=== PATIENT | female | born 1955 | race Caucasian/White ===

== ENCOUNTER 2018-07-31 13:38 | Inpatient (IN) | payer BC, MEDICAID ==
[2018-07-31] MEDS ORDERED: predniSONE 20 MG TABLET PO STA (14:07)
[2018-07-31] MEDS ORDERED: IPRATROPIUM 0.2 MG/ML NEB INH STA (14:07)
[2018-07-31] MEDS ORDERED: ALBUTEROL NEB 2.5 MG/3 ML INH STA (14:07)
[2018-07-31] MEDS ORDERED: MAGNESIUM SULFATE 2 GRAM 2 GM/50 ML BAG IV ONE (14:08)
[2018-07-31] MEDS ORDERED: METOCLOPRAMIDE 10 MG/2 ML VIAL IVP STA (14:08)
[2018-07-31] MEDS ORDERED: ACETAMINOPHEN 500 MG TABLET PO STA (14:08)
--- NOTE | 2018-07-31 14:11 | ED Physician Documentation ---
PD HPI DYSPNEA - Stated complaint Stated Complaint: SOA/HEADACHE - Chief complaint Chief Complaint: Resp - Additional information Additional information: 62-year-old female who recently quit smoking 1 week ago presents the emergency department with increasing shortness of breath, URI symptoms and dyspnea on exertion over the past several days. The patient reports feeling generally weak and unwell. Symptoms are described as severe. No relieving factors. The patient also reports a generalized headache associated with the shortness of breath. The patient describes a headache as mild. The headache was a gradual onset Review of Systems Constitutional: reports: Chills, Fatigue Eyes: denies: Discharge Ears: denies: Ear pain Nose: reports: Rhinorrhea / runny nose, Congestion Throat: denies: Sore throat Cardiac: denies: Chest pain / pressure Respiratory: reports: Dyspnea, Cough, Wheezing GI: denies: Vomiting : denies: Dysuria Skin: denies: Rash Musculoskeletal: denies: Neck pain Neurologic: reports: Headache. denies: Generalized weakness PD PAST MEDICAL HISTORY - Past Medical History Endocrine/Autoimmune: None : None HEENT: None Derm: None - Past Surgical History Past Surgical History: Yes General: Cholecystectomy, Other - Present Medications Home Medications: Ambulatory Orders Medication Instructions Recorded Confirmed No Known Home Medications 05/23/15 07/31/18 - Allergies Allergies/Adverse Reactions: Allergies Allergy/AdvReac Type Severity Reaction Status Date / Time penicillin V Allergy Unknown Verified 07/31/18 16:14 pollen extracts Allergy Unknown Verified 07/31/18 16:14 codeine AdvReac Unknown Verified 07/31/18 16:14 - Social History Does the pt smoke?: Yes Smoking Status: Current some day smoker Does the pt drink ETOH?: Yes Does the pt have substance abuse?: Yes Results - Vitals Vitals: Vital Signs - 24 hr 07/31/18 07/31/18 07/31/18 13:44 14:23 15:53 Temperature 36.6 C Heart Rate 82 76 63 Respiratory 20 18 16 Rate Blood Pressure 152/84 H 99/55 L O2 Saturation 82 L 89 L 07/31/18 16:07 Temperature Heart Rate Respiratory Rate Blood Pressure O2 Saturation 92 Oxygen O2 Source Nasal cannula Oxygen Flow Rate 3 - EKG (time done) 13:59 Rate: Rate (enter#) Rhythm: NSR Intervals: Normal WI, QRS normal QRS: Normal Ischemia: Non specific changes - Labs Labs: Laboratory Tests 07/31/18 07/31/18 07/31/18 15:21 15:21 15:21 WBC 6.2 RBC 4.58 Hgb 14.2 Hct 41.9 MCV 91.4 MCH 30.9 MCHC 33.9 RDW 13.5 Plt Count 184 MPV 7.5 L Neut # (Auto) 3.4 Lymph # (Auto) 2.2 [place] # (Auto) 0.5 Eos # (Auto) 0.1 Baso # (Auto) 0.0 Absolute Nucleated RBC 0.00 Nucleated RBC % 0.0 Sodium 136 Potassium 3.4 L Chloride 94 L Carbon Dioxide 32 Anion Gap 10.0 BUN 20 Creatinine 0.7 Estimated GFR (MDRD) 85 L Glucose 111 H Calcium 9.2 Total Bilirubin 0.9 AST 30 ALT 31 Alkaline Phosphatase 41 L Troponin I < 0.04 Total Protein 7.2 Albumin 4.0 Globulin 3.2 Albumin/Globulin Ratio 1.3 Lipase 29 - Rads (name of study) CXR Radiology: Final report received, See rad report (IMPRESSION: COPD. No lobar consolidation. ) PD MEDICAL DECISION MAKING - ED course ED course: The patient has had improvement with a prolonged breathing treatment, but the patient still has a fair amount of wheezing and is requiring oxygen to maintain her oxygen saturations. The patient will require admission for further management of her acute COPD exacerbation. The findings and plan were discussed with the hospitalist Dr. Salamanca who agrees with the plan. The plan was discussed with the patient who understands and agrees to plan Departure - Departure Disposition: [facility] DC/Xfer Clinical Impression: COPD with acute exacerbation, Hypoxia Condition: Fair
--- NOTE | 2018-07-31 14:34 | XRAY Report ---
Reason: hypoxic Procedure Date: 07/31/2018 Accession Number: [id number] / [id number] Procedure: XR - Chest 2 View X-Ray CPT Code: 48703 FULL RESULT: EXAM: CHEST RADIOGRAPHY EXAM DATE: 07/31/2018 02:22 PM. CLINICAL HISTORY: Hypoxic. COMPARISON: Chest 2 view PA/lateral 05/23/2015 2:13 PM. TECHNIQUE: 2 views. FINDINGS: Lungs/Pleura: No focal opacities evident. No pleural effusion. No pneumothorax. Increased lung volumes and flattened diaphragms. Mediastinum: Heart and mediastinal contours are stable with subtle calcifications of the aortic arch. Other: None. IMPRESSION: COPD. No lobar consolidation. RADIA
[2018-07-31 15:27] LABS: BASOPHILS % (AUTO) 0.4 %; EOSINOPHILS # (AUTO) 0.1 10^3/uL (0.0-0.7); EOSINOPHILS % (AUTO) 0.8 %; HGB - HEMOGLOBIN 14.2 g/dL (12.0-16.0); LYMPHOCYTES # (AUTO) 2.2 10^3/uL (1.5-3.5); LYMPHOCYTES % (AUTO) 35.2 %; MEAN CORPUSCULAR HEMOGLOBIN 30.9 pg (27.0-31.0); MEAN CORPUSCULAR HGB CONC 33.9 g/dL (32.0-36.0); MEAN CORPUSCULAR VOLUME 91.4 fL (81.0-99.0); MEAN PLATELET VOLUME 7.5 fL (7.9-10.8); MONOCYTES # (AUTO) 0.5 10^3/uL (0.0-1.0); MONOCYTES % (AUTO) 8.7 %; NEUTROPHILS # (AUTO) 3.4 10^3/uL (1.5-6.6); NEUTROPHILS % (AUTO) 54.9 %; PLT - PLATELET COUNT 184 10^3/uL (130-450); RED BLOOD COUNT 4.58 10^6/uL (4.20-5.40); RED CELL DISTRIBUTION WIDTH 13.5 % (12.0-15.0); WHITE BLOOD COUNT 6.2 x10^3/uL (4.8-10.8)
[2018-07-31 15:42] LABS: ALBUMIN/GLOBULIN RATIO 1.3 (1.0-2.2); BILIRUBIN,TOTAL 0.9 mg/dL (0.2-1.0); CALCIUM 9.2 mg/dL (8.5-10.3); CREATININE 0.7 mg/dL (0.4-1.0); TOTAL PROTEIN 7.2 g/dL (6.7-8.2)
[2018-07-31] MEDS ORDERED: ONDANSETRON ODT 4 MG TABLET TL PRN ×2 (16:51→17:41)
[2018-07-31] MEDS ORDERED: TEMAZEPAM 15 MG CAPSULE PO PRN (16:51)
[2018-07-31] MEDS ORDERED: ONDANSETRON 4 MG/2 ML VIAL IVP PRN ×2 (16:51→17:41)
[2018-07-31] MEDS ORDERED: SODIUM CHLORIDE FLUSH 0.9% 10 ML SYRINGE IVP PRN (16:51)
[2018-07-31] MEDS ORDERED: HYDROcod/ACETAM 5/325 MG TABLET PO PRN (16:51)
[2018-07-31] MEDS ORDERED: ACETAMINOPHEN 325 MG TABLET PO PRN ×2 (16:51→17:41)
--- NOTE | 2018-07-31 16:58 | HISTORY & PHYSICAL EXAMINATION ---
Chief Complaint - Chief Complaint Chief Complaint: shortness of breath, dizziness History of Present Illness - Admitted From Admitted From:: ED - History Obtained From Records Reviewed: yes History obtained from: chart review, patient Exam Limitations: none - History of Present Illness HPI Comment/Other: Nuris Silver is an older appearing 62-year old female with a past medical history of homelessness, COPD, anxiety, sciatica, shingles, hypertension, caffeine use, and life long tobacco dependence, but quit 1 week ago. The patient lives in a transitional housing situation with an emotional support dog. She states that one week ago she decided to quit smoking cold turkey. Her first symptom was a "knot in the back of her neck" in which she knew she was about to get sick. Her next symptoms were extreme shortness of breath, then fatigue, dizziness, chest tightness, left arm numbness, anxiety, and one episode of syncope in which she was already sitting on the floor from extreme exhaustion. She did not seek medical care until today since she has a therapy dog and was worried about who would care for the dog if she were not home. A friend now has the dog and the patient was brought in by private car. Once in the ED the patient had a low oxygen on room air at 82%, which improved to 90% on 5L. Imaging showed COPD without evidence of pneumonia. On my exam she can speak in full sentences, but requires 5L per oxy mask. She was using her accessory muscles, and was warm and dry. She denies dizziness, nausea, vomiting, a productive cough, bleeding, bruising, or worsening shortness of breath since arriving in the ED. She was admitted to inpatient for this COPD exacerbation. History - Past Medical History Cardiovascular: reports: Hypertension, Coronary artery disease, Murmur Respiratory: reports: COPD, Emphysema, Shortness of breath Neuro: reports: Headaches, Peripheral neuropathy, Tremors Endocrine/Autoimmune: reports: None GI: reports: GERD : reports: Incontinence (stress), Frequency HEENT: reports: Chronic sinusitis Psych: reports: Depression, Anxiety, Post traumatic stress disorder Musculoskeletal: reports: Osteoarthritis, Chronic back pain Derm: reports: None MRSA Hx?: No - Past Surgical History General: reports: Cholecystectomy, Other - Family & Social History Family History: Mother: , Father: , Sister: Alive and Well Family History Comment/Other: The patient's mother in 2001 of natural caused and had no known medical history. Her father became parapelegic when the patient was only 4 years old and was a QUAD, 8 years later from complications related to his condition. She has 2 biological sisters that are quite a bit older, both astranged without any known medical conditions. Living arrangement: snf ("[facility]", transitional housing after homelessness.) Social History Notes: The patient worked on a [employer] for 11 years in [place]. [place] moved to the [place] in [place] to take care of her mother and to live with her boyfriend, both of which have . She was homeless starting in 2014 after loosing her job. In the past 6 months, she has been able to move to transitional housing with her therapy dog, Med. She has made some friends there. She denies alcohol use. She admits to occasional marijuana use. She states that she has smoked since age 15 and for some of those years was using up to 3 PPD, but for the past month has been able to cut down to 1/2 PPD. She quit smoking one week ago and denies illicit drug use. She wishes to be a FULL code. - Substance History Use: Uses substance without health or social issues: Tobacco, Cannabis Use Issues: Anxiety Disorder, Mood Disorder Abuse: Recurrent use of substance despite neg consequences: NONE, Cannabis Abuse Issues: Anxiety Disorder Dependence: Experiences withdrawal or developed tolerances: Tobacco, Cannabis Dependence Issues: Anxiety Disorder, Mood Disorder Tobacco Details: Cigarettes (From age [age], quit 1 week ago.) - POLST Patient has POLST: No POLST Status: Full Code Meds/Allgy - Home Medications Home Medications: Ambulatory Orders Medication Instructions Recorded Confirmed No Known Home Medications 05/23/15 07/31/18 - Allergies Allergies/Adverse Reactions: Allergies Allergy/AdvReac Type Severity Reaction Status Date / Time penicillin V Allergy Severe Hives Verified 07/31/18 16:34 pollen extracts Allergy Intermediate Stuffy/Runny Verified 07/31/18 16:34 nose codeine AdvReac Severe Hives Verified 07/31/18 18:26 Review of Systems - Constitutional Constitutional: reports: Fatigue, Poor appetite, Weight loss - Eyes Eyes: reports: Vision loss - Ears, Nose & Throat Ears, Nose & Throat: reports: Postnasal drainage, Sore throat, Hoarseness, Dental decay - Cardiovascular Cariovascular: reports: Lightheadedness, Syncope (x1, was already sitting on the floor. Believes this was about an hour), Exertional dyspnea, Decr. exercise tolerance, Orthopnea - Respiratory Respiratory: reports: Cough, Sputum production, Wheezing, Orthopnea, SOB at rest, SOB with exertion - Gastrointestinal Gastrointestinal: reports: Nausea, Reflux/heartburn - Genitourinary Genitourinary: reports: Frequency, Nocturia - Musculoskeletal Musculoskeletal: reports: Muscle weakness - Integumentary Integumentary: reports: Dryness - Neurological Neurological: reports: General weakness, Dizziness, Abnormal gait (inability to ambulate for more than a few steps), Other (anxiety) - Psychiatric Psychiatric: reports: Depression, Anxiety - All Other Systems All Other Systems: reports: Reviewed and negative Prior Level of Functionality: Lives independently in transitional housing, no use of cane or walker. No recent falls. Exam - Vital Signs Reviewed Vital Signs: Yes Vital Signs: Vital Signs x48h Temp Pulse Resp BP Pulse Ox 07/31/18 16:36 87 L 07/31/18 16:07 92 07/31/18 15:53 63 16 99/55 L 89 L 07/31/18 14:23 76 18 07/31/18 13:44 36.6 C 82 20 152/84 H 82 L - Physical Exam General Appearance: positive: Alert, Mild distress, Anxious Eyes Bilateral: positive: PERRL. negative: No scleral icterus (bilateral scleral icterus) ENT: positive: Pharyngeal erythema, Oral lesions (poor dentitian), Dry mucous me mbranes Neck: positive: No JVD, Lymphadenopathy (R), Lymphadenopathy (L) Respiratory: positive: Chest non-tender, Wheezes, Rhonchi Cardiovascular: positive: Regular rate & rhythm, No gallop, Systolic murmur, Decreased pulse(s) Peripheral Pulses: positive: 1+ Abdomen: positive: Non-tender, Nml bowel sounds Back: positive: Nml inspection Skin: positive: No rash, Warm, Dry, Other (bronze) Extremities: positive: Non-tender, Full ROM, No pedal edema Neurologic/Psychiatric: positive: Oriented x3, CN's nml (2-12), Motor nml, Sensation nml, Weakness, Slurred/abnml speech (speech impediment), Depressed mood/affect Reflexes: Bicep (R): 3+, Bicep (L): 3+ Sepsis Event Note (H) - Evaluation Current Stage of Sepsis: Ruled out Conclusion/Plan - Problem List (1) COPD with acute exacerbation Conclusion/Plan: The patient lives in a transitional housing situation with an emotional support dog. She states that one week ago she decided to quit smoking cold turkey. Her first symptom was a "knot in the back of her neck" in which she knew she was about to get sick. Her next symptoms were extreme shortness of breath, then fatigue, dizziness, chest tightness, left arm numbness, and one episode of syncope in which she was already sitting on the floor from extreme exhaustion. She did not seek medical care until today since she has a therapy dog and was worried about who would care for the dog if she were not home. A friend now has the dog and the patient was brought in by private car. Once in the ED the patient had a low oxygen on room air at 82%, which improved to 90% on 5L. Plan: IV steroids, IV antibiotics, respiratory care, nebulizers, ABGs if changes in mentation, and further imaging if no improvement. (2) Hypoxia Conclusion/Plan: The patient states that she does not wear oxygen at home, and is not prescribed inhalers. She states that she quit smoking 1 week ago. Upon arrival to the ED she was only 82% on room air. During my exam, she was on 3-5L with oxygen saturations in the low 90's. She did not exhibit a cough. Plan: continue oxygen therapy, respiratory care, treat this COPD exacerbation. (3) Anxiety disorder Conclusion/Plan: The patient has been seen out patient for this and was prescribed citalopram in August of 2017. At this appointment she became very frustrated and left the clinic when it was time to discuss dose adjustment. Since that time, she has not been prescribed anything else for her chronic anxiety. Today on exam, she talked a lot about her therapy dog that she uses for her emotional support. She is agreeable to staying for the next 2-3 days to treat her COPD. She is hopeful that after this episode, her breathing will be much improved because she has stopped smoking for good. Plan: Offer morphine for air hunger, temazepam for sleep tonight, and monitor for extreme anxiousness. Suggest counseling upon discharge. Qualifiers: Anxiety disorder type: unspecified anxiety disorder Qualified Code(s): F41.9 - Anxiety disorder, unspecified (4) Tobacco abuse Conclusion/Plan: The patient states that she began smoking at age 16 and quit one week ago. 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 She did this for 11 years and this is when her smoking habit really formed. She said her maximum was just under 2 PPD, and just lately she cut back to 1/2 pack. Her PCP tried to help her with Chantix, but she states this did not work. Plan: Treat this exacerbation, offer nicotine if needed. (5) Dental caries extending into pulp Conclusion/Plan: On exam the patient is found to have poor dentition and this does not appear to be a new problem. I suspect heavy smoking or illicit drug use. Plan: MUDDs urine test, Peridex rinse. (6) Hypertension Conclusion/Plan: After reviewing outside records she had early HTN, without treatment. On arrival to the ED she had a blood pressure of 152/84, but this was likely due to stress. Plan: continue to monitor, consider starting a medication. Qualifiers: Hypertension type: essential hypertension Qualified Code(s): I10 - Yan dye (primary) hypertension - Lab Results Lab results reviewed: Yes Fish Bones: 08/01/18 04:58 08/01/18 04:58 - Diagnostic Imaging Results Diagnostic Imaging Results: positive: Final report reviewed Diagnostic Imaging Results Comments: EXAM: CHEST RADIOGRAPHY EXAM DATE: 07/31/2018 02:22 PM. FINDINGS: Lungs/Pleura: No focal opacities evident. No pleural effusion. No pneumothorax. Increased lung volumes and flattened diaphragms.Mediastinum: Heart and mediastinal contours are stable with subtle calcifications of the aortic arch. IMPRESSION: COPD. No lobar consolidation. - EKG Results EKG Interpreted Independently: Yes EKG Comparison: No prior EKG EKG Findings: SR 70's with flat T waves. Core Measures - Anticipated LOS I expect patient to be DC'd or transferred within 96 hours.: Yes - DVT/VTE - Prophylaxis VTE/DVT Device ordered at admit?: Yes VTE/DVT Prophylaxis med ordered at admit?: Yes - Stroke - Rehab Assessment Rehab services assessment to be ordered?: Yes - AMI - Statin at Admit Aspirin Prescribed on Admit: Yes
[2018-07-31] MEDS ORDERED: SODIUM CHLORIDE FLUSH 0.9% 10 ML SYRINGE IVP SCH (17:00)
[2018-07-31] MEDS ORDERED: IPRATROPIUM/ALBUTEROL 3 ML NEB INH PRN (17:38)
[2018-07-31] MEDS ORDERED: guaiFENesin/CODEINE 5 ML UDC PO PRN (18:16)
[2018-07-31] MEDS: SODIUM CHLORIDE FLUSH 0.9% 10 ML SYRINGE IVP PRN ×2 (18:21→22:38)
[2018-07-31] MEDS: methylPREDNISolone SUCCINATE 125 MG/2 ML VIAL IVP SCH ×2 (18:21→22:38)
[2018-07-31] MEDS: NS W/20 MEQ KCL 1,000 ML IV SCH (18:21)
[2018-07-31] MEDS: levoFLOXacin 750 MG/150 ML 750 MG/150 ML BAG IV SCH (18:58)
[2018-07-31] MEDS: IPRATROPIUM/ALBUTEROL 3 ML NEB INH SCH (20:17)
[2018-07-31] MEDS: BUDESONIDE 0.5 MG/2 ML NEB INH SCH (20:18)
[2018-07-31] MEDS: CHLORHEXIDINE GLUCONATE 15 ML UDC PO SCH (20:49)
[2018-07-31] MEDS: guaiFENesin 600 MG TABLET PO SCH (20:50)
[2018-07-31] MEDS: FAMOTIDINE 20 MG TABLET PO SCH (20:50)
[2018-07-31] MEDS: OXYMETAZOLINE NASAL SPRAY NAS SCH (20:50)
[2018-07-31] MEDS ORDERED: FAMOTIDINE 20 MG TABLET PO SCH (21:00)
[2018-07-31 23:09] LABS: MUDS CUTOFF CONCENTRATIONS CUTOFF CONC BELOW:
[2018-07-31 23:13] LABS: BILIRUBIN,URINE NEGATIVE (NEGATIVE); GLUCOSE, URINE (UA) >=1000 mg/dL (NEGATIVE); KETONES,URINE (UA) NEGATIVE (NEGATIVE); LEUKOCYTE ESTERASE, URINE NEGATIVE (NEGATIVE); NITRITE,URINE NEGATIVE (NEGATIVE); OCCULT BLOOD,URINE NEGATIVE (NEGATIVE); PROTEIN,URINE NEGATIVE (NEGATIVE); UROBILINOGEN,URINE 0.2 (NORMAL) E.U./dL (NORMAL)
[2018-07-31 23:17] LABS: CLARITY,URINE HAZY (CLEAR)
[2018-07-31 23:35] LABS: RBC,URINE None Seen /HPF (0-5)
[2018-07-31 23:36] LABS: BACTERIA,URINE Rare /HPF (None Seen); SQUAMOUS EPITHELIAL CELL,UR MANY Squamous (<= Few)
[2018-07-31 23:49] LABS: AMPHETAMINE SCREEN,URINE NEGATIVE (NEGATIVE); BENZODIAZEPINES SCREEN, URINE NEGATIVE (NEGATIVE); COCAINE SCREEN URINE NEGATIVE (NEGATIVE); METHADONE SCREEN, URINE NEGATIVE (NEGATIVE); METHAMPHETAMINES SCREEN, URINE NEGATIVE (NEGATIVE); OPIATE SCREEN, URINE NEGATIVE (NEGATIVE); OXYCODONE SCREEN, URINE NEGATIVE (NEGATIVE); PROPOXYPHENE SCREEN, URINE NEGATIVE (NEGATIVE); TRICYCLIC ANTIDEPRESSANT,URINE NEGATIVE (NEGATIVE)
[2018-07-31] MEDS: TEMAZEPAM 15 MG CAPSULE PO PRN (23:58)
[2018-08-01] MEDS: SODIUM CHLORIDE FLUSH 0.9% 10 ML SYRINGE IVP SCH ×4 (02:32→23:34)
[2018-08-01] MEDS: NS W/20 MEQ KCL 1,000 ML IV SCH (04:08)
[2018-08-01 05:20] LABS: BASOPHILS % (AUTO) 0.3 %; HGB - HEMOGLOBIN 12.9 g/dL (12.0-16.0); LYMPHOCYTES # (AUTO) 0.6 10^3/uL (1.5-3.5); LYMPHOCYTES % (AUTO) 12.5 %; MEAN CORPUSCULAR HEMOGLOBIN 30.7 pg (27.0-31.0); MEAN CORPUSCULAR HGB CONC 32.7 g/dL (32.0-36.0); MEAN CORPUSCULAR VOLUME 93.8 fL (81.0-99.0); MEAN PLATELET VOLUME 7.8 fL (7.9-10.8); MONOCYTES # (AUTO) 0.1 10^3/uL (0.0-1.0); MONOCYTES % (AUTO) 1.3 %; NEUTROPHILS # (AUTO) 4.2 10^3/uL (1.5-6.6); NEUTROPHILS % (AUTO) 85.9 %; PLT - PLATELET COUNT 168 10^3/uL (130-450); RED BLOOD COUNT 4.21 10^6/uL (4.20-5.40); RED CELL DISTRIBUTION WIDTH 13.5 % (12.0-15.0); WHITE BLOOD COUNT 4.9 x10^3/uL (4.8-10.8)
[2018-08-01 05:26] LABS: ALBUMIN 3.5 g/dL (3.2-5.5); ALBUMIN/GLOBULIN RATIO 1.1 (1.0-2.2); BILIRUBIN,TOTAL 0.7 mg/dL (0.2-1.0); CALCIUM 8.6 mg/dL (8.5-10.3); CREATININE 0.6 mg/dL (0.4-1.0); MAGNESIUM 2.2 mg/dL (1.7-2.8); PHOSPHORUS 3.6 mg/dL (2.5-4.6); TOTAL PROTEIN 6.7 g/dL (6.7-8.2)
[2018-08-01] MEDS: methylPREDNISolone SUCCINATE 125 MG/2 ML VIAL IVP SCH ×3 (06:19→21:07)
[2018-08-01] MEDS: IPRATROPIUM/ALBUTEROL 3 ML NEB INH SCH ×4 (07:21→19:45)
[2018-08-01] MEDS: BUDESONIDE 0.5 MG/2 ML NEB INH SCH ×2 (07:21→19:45)
[2018-08-01] MEDS: FAMOTIDINE 20 MG TABLET PO SCH ×2 (08:01→21:07)
[2018-08-01] MEDS: guaiFENesin 600 MG TABLET PO SCH ×2 (08:01→21:07)
[2018-08-01] MEDS: CHLORHEXIDINE GLUCONATE 15 ML UDC PO SCH ×2 (08:01→21:07)
[2018-08-01] MEDS: OXYMETAZOLINE NASAL SPRAY NAS SCH ×2 (08:02→21:08)
[2018-08-01] MEDS: POLYETHYLENE GLYCOL 3350 17 GM PACKET PO SCH (08:03)
[2018-08-01] MEDS: FLUTICASONE NASAL SPRAY NAS SCH (08:15)
[2018-08-01] MEDS: ENOXAPARIN 40 MG/0.4 ML SYRINGE SUBQ SCH (08:17)
--- NOTE | 2018-08-01 08:56 | PROVIDER PROGRESS NOTE ---
Subjective - Prog Note Date Prog Note Date: 08/01/18 Prog Note Time: 08:56 - Subjective Pt reports feeling: Improved Subjective: Nuris admits to much improvement since coming to the ED yesterday, but continues to have high oxygen needs of 6-8L oxygen per oxymask or nasal cannula. She notes that her appetite is improved today, but continues to be a light eater given her respiratory distress. She admits to a frontal headache, which she is thankful for the new nasal sprays. She denies confusion, insomnia, nausea, vomiting, new chest pain, anxiety, a rash, bleeding, a productive cough or dizziness. She was explained in detail her plan of care and given an information card to explain her treatment details. Current Medications - Current Medications Current Medications: Active Medications: Acetaminophen (Tylenol) 650 mg PO Q4HR PRN Hydrocodone Bitart/Acetaminophen (Regan 5/325) 1 tab PO Q4HR PRN Albuterol/Ipratropium (Duoneb) 3 ml INH Q4HR PRN Albuterol/Ipratropium (Duoneb) 3 ml INH RTQID DIAMANTE Budesonide (Pulmicort) 0.5 mg INH RTBID DIAMANTE Chlorhexidine Gluconate (Peridex) 15 ml PO BID DIAMANTE Enoxaparin Sodium (Lovenox) 40 mg SUBQ DAILY DIAMANTE Famotidine (Pepcid) 20 mg PO BID DIAMANTE Fluticasone Propionate (Flonase) 2 sprays CASANDRA DAILY DIAMANTE Guaifenesin (Mucinex) 600 mg PO BID DIAMANTE Potassium Chloride/Sodium Chloride (Normal Saline 0.9% W/20 Meq Kcl) 1,000 mls @ 50 mls/hr IV .Q8H DIAMANTE Levofloxacin (Levaquin 750 Mg/150 Ml) 750 mg in 150 mls @ 100 mls/hr IV Q24H DIAMANTE Methylprednisolone Sodium Succinate (Solu-Medrol (125mg Vial)) 60 mg IVP TID DIAMANTE Ondansetron HCl (Zofran Inj) 4 mg IVP Q6HR PRN Ondansetron HCl (Zofran Odt) 4 mg TL Q6HR PRN Oxymetazoline HCl (Afrin) 2 sprays CASANDRA BID DIAMANTE Polyethylene Glycol (Miralax) 17 gm PO DAILY DIAMANTE Temazepam (Restoril) 15 mg PO QPM PRN No Known Home Medications 05/23/15 Objective - Vital Signs/Intake & Output Reviewed Vital Signs: Yes Vital Signs: Vital Signs x48h Temp Pulse Pulse Resp BP Pulse Ox 08/01/18 08:00 36.3 C L 52 L 18 109/52 L 98 08/01/18 07:21 54 L 16 08/01/18 04:07 36.5 C 58 L 18 109/70 92 Intake & Output: Intake & Output 07/29/18 07/30/18 07/31/18 08/01/18 23:59 23:59 23:59 23:59 Intake Total 477.083 805.834 Output Total 250 Balance 227.083 805.834 - Objective General Appearance: positive: No acute distress, Alert, Mild distress Eyes Bilateral: positive: PERRL ENT: positive: Pharynx nml, Oral lesions (related to poor dentitian), Dry mucous membranes Neck: positive: Thyroid nml, No JVD, Lymphadenopathy (R), Lymphadenopathy (L) Respiratory: positive: Chest non-tender, Wheezes, Rhonchi Cardiovascular: positive: Regular rate & rhythm, No gallop, Tachycardia, Systolic murmur Peripheral Pulses: 1+ Radial (R), 1+ Radial (L) Abdomen: positive: Non-tender, Nml bowel sounds, Other (rounded, soft) Back: positive: Nml inspection Skin: positive: No rash, Warm, Dry, Other (bronze) Extremities: positive: Non-tender, Full ROM, Nml appearance, No pedal edema Neurologic/Psychiatric: positive: Oriented x3, CN's nml (2-12), Motor nml, Sensation nml, Mood/affect nml, Slurred/abnml speech (baseline speech impedement) Reflexes: Bicep (R): 3+, Bicep (L): 3+ - Lab Results Fish Bones: 08/01/18 04:58 08/01/18 04:58 Other Labs: Lab Results x24hrs 08/01/18 08/01/18 08/01/18 Range/Units 04:58 04:58 04:58 WBC 4.9 (4.8-10.8) x10^3/uL RBC 4.21 (4.20-5.40) 10^6/uL Hgb 12.9 (12.0-16.0) g/dL Hct 39.5 (37.0-47.0) % MCV 93.8 (81.0-99.0) fL MCH 30.7 (27.0-31.0) pg MCHC 32.7 (32.0-36.0) g/dL RDW 13.5 (12.0-15.0) % Plt Count 168 (130-450) 10^3/uL MPV 7.8 L (7.9-10.8) fL Neut # (Auto) 4.2 (1.5-6.6) 10^3/uL Lymph # (Auto) 0.6 L (1.5-3.5) 10^3/uL [place] # (Auto) 0.1 (0.0-1.0) 10^3/uL Eos # (Auto) 0.0 (0.0-0.7) 10^3/uL Baso # (Auto) 0.0 (0.0-0.1) 10^3/uL Absolute Nucleated RBC 0.00 x10^3/uL Nucleated RBC % 0.0 /100WBC Sodium 135 (135-145) mmol/L Potassium 4.2 (3.5-5.0) mmol/L Chloride 97 L (101-111) mmol/L Carbon Dioxide 29 (21-32) mmol/L Anion Gap 9.0 (6-13) BUN 17 (6-20) mg/dL Creatinine 0.6 (0.4-1.0) mg/dL Estimated GFR (MDRD) 101 (>89) Glucose 157 H (70-100) mg/dL Lactic Acid 1.3 (0.5-2.2) mmol/L Calcium 8.6 (8.5-10.3) mg/dL Phosphorus 3.6 (2.5-4.6) mg/dL Magnesium 2.2 (1.7-2.8) mg/dL Total Bilirubin 0.7 (0.2-1.0) mg/dL AST 28 (10-42) IU/L ALT 33 (10-60) IU/L Alkaline Phosphatase 40 L (42-121) IU/L Troponin I (<0.49) ng/mL Total Protein 6.7 (6.7-8.2) g/dL Albumin 3.5 (3.2-5.5) g/dL Globulin 3.2 (2.1-4.2) g/dL Albumin/Globulin Ratio 1.1 (1.0-2.2) Lipase (22-51) U/L Urine Color Urine Clarity (CLEAR) Urine pH (5.0-7.5) PH Ur Specific [place] (1.002-1.030) Urine Protein (NEGATIVE) mg/dL Urine Glucose (UA) (NEGATIVE) mg/dL Urine Ketones (NEGATIVE) mg/dL Urine Occult Blood (NEGATIVE) Urine Nitrite (NEGATIVE) Urine Bilirubin (NEGATIVE) Urine Urobilinogen (NORMAL) E.U./dL Ur Leukocyte Esterase (NEGATIVE) Urine RBC (0-5) /HPF Urine WBC (0-5) /HPF Ur Squamous Epith Cells (<= Few) Urine Bacteria (None Seen) /HPF Urine Culture Comments Urine Opiates Screen (NEGATIVE) Ur Oxycodone Screen (NEGATIVE) Urine Methadone Screen (NEGATIVE) Ur Propoxyphene Screen (NEGATIVE) Ur Barbiturates Screen (NEGATIVE) Ur Tricyclics Screen (NEGATIVE) Ur Phencyclidine Scrn (NEGATIVE) Ur Amphetamine Screen (NEGATIVE) U Methamphetamines Scrn (NEGATIVE) U Benzodiazepines Scrn (NEGATIVE) Urine Cocaine Screen (NEGATIVE) U Cannabinoids Screen (NEGATIVE) 07/31/18 07/31/18 07/31/18 Range/Units 22:40 15:21 15:21 WBC (4.8-10.8) x10^3/uL RBC (4.20-5.40) 10^6/uL Hgb (12.0-16.0) g/dL Hct (37.0-47.0) % MCV (81.0-99.0) fL MCH (27.0-31.0) pg MCHC (32.0-36.0) g/dL RDW (12.0-15.0) % Plt Count (130-450) 10^3/uL MPV (7.9-10.8) fL Neut # (Auto) (1.5-6.6) 10^3/uL Lymph # (Auto) (1.5-3.5) 10^3/uL [place] # (Auto) (0.0-1.0) 10^3/uL Eos # (Auto) (0.0-0.7) 10^3/uL Baso # (Auto) (0.0-0.1) 10^3/uL Absolute Nucleated RBC x10^3/uL Nucleated RBC % /100WBC Sodium 136 (135-145) mmol/L Potassium 3.4 L (3.5-5.0) mmol/L Chloride 94 L (101-111) mmol/L Carbon Dioxide 32 (21-32) mmol/L Anion Gap 10.0 (6-13) BUN 20 (6-20) mg/dL Creatinine 0.7 (0.4-1.0) mg/dL Estimated GFR (MDRD) 85 L (>89) Glucose 111 H (70-100) mg/dL Lactic Acid (0.5-2.2) mmol/L Calcium 9.2 (8.5-10.3) mg/dL Phosphorus (2.5-4.6) mg/dL Magnesium (1.7-2.8) mg/dL Total Bilirubin 0.9 (0.2-1.0) mg/dL AST 30 (10-42) IU/L ALT 31 (10-60) IU/L Alkaline Phosphatase 41 L (42-121) IU/L Troponin I < 0.04 (<0.49) ng/mL Total Protein 7.2 (6.7-8.2) g/dL Albumin 4.0 (3.2-5.5) g/dL Globulin 3.2 (2.1-4.2) g/dL Albumin/Globulin Ratio 1.3 (1.0-2.2) Lipase 29 (22-51) U/L Urine Color DARK YELLOW Urine Clarity HAZY (CLEAR) Urine pH 5.0 (5.0-7.5) PH Ur Specific [place] >=1.030 H (1.002-1.030) Urine Protein NEGATIVE (NEGATIVE) mg/dL Urine Glucose (UA) >=1000 H (NEGATIVE) mg/dL Urine Ketones NEGATIVE (NEGATIVE) mg/dL Urine Occult Blood NEGATIVE (NEGATIVE) Urine Nitrite NEGATIVE (NEGATIVE) Urine Bilirubin NEGATIVE (NEGATIVE) Urine Urobilinogen 0.2 (NORMAL) (NORMAL) E.U./dL Ur Leukocyte Esterase NEGATIVE (NEGATIVE) Urine RBC None Seen (0-5) /HPF Urine WBC 0-3 (0-5) /HPF Ur Squamous Epith Cells MANY Squamous H (<= Few) Urine Bacteria Rare (None Seen) /HPF Urine Culture Comments NOT INDICATED Urine Opiates Screen NEGATIVE (NEGATIVE) Ur Oxycodone Screen NEGATIVE (NEGATIVE) Urine Methadone Screen NEGATIVE (NEGATIVE) Ur Propoxyphene Screen NEGATIVE (NEGATIVE) Ur Barbiturates Screen NEGATIVE (NEGATIVE) Ur Tricyclics Screen NEGATIVE (NEGATIVE) Ur Phencyclidine Scrn NEGATIVE (NEGATIVE) Ur Amphetamine Screen NEGATIVE (NEGATIVE) U Methamphetamines Scrn NEGATIVE (NEGATIVE) U Benzodiazepines Scrn NEGATIVE (NEGATIVE) Urine Cocaine Screen NEGATIVE (NEGATIVE) U Cannabinoids Screen POSITIVE H (NEGATIVE) 07/31/18 Range/Units 15:21 WBC 6.2 (4.8-10.8) x10^3/uL RBC 4.58 (4.20-5.40) 10^6/uL Hgb 14.2 (12.0-16.0) g/dL Hct 41.9 (37.0-47.0) % MCV 91.4 (81.0-99.0) fL MCH 30.9 (27.0-31.0) pg MCHC 33.9 (32.0-36.0) g/dL RDW 13.5 (12.0-15.0) % Plt Count 184 (130-450) 10^3/uL MPV 7.5 L (7.9-10.8) fL Neut # (Auto) 3.4 (1.5-6.6) 10^3/uL Lymph # (Auto) 2.2 (1.5-3.5) 10^3/uL [place] # (Auto) 0.5 (0.0-1.0) 10^3/uL Eos # (Auto) 0.1 (0.0-0.7) 10^3/uL Baso # (Auto) 0.0 (0.0-0.1) 10^3/uL Absolute Nucleated RBC 0.00 x10^3/uL Nucleated RBC % 0.0 /100WBC Sodium (135-145) mmol/L Potassium (3.5-5.0) mmol/L Chloride (101-111) mmol/L Carbon Dioxide (21-32) mmol/L Anion Gap (6-13) BUN (6-20) mg/dL Creatinine (0.4-1.0) mg/dL Estimated GFR (MDRD) (>89) Glucose (70-100) mg/dL Lactic Acid (0.5-2.2) mmol/L Calcium (8.5-10.3) mg/dL Phosphorus (2.5-4.6) mg/dL Magnesium (1.7-2.8) mg/dL Total Bilirubin (0.2-1.0) mg/dL AST (10-42) IU/L ALT (10-60) IU/L Alkaline Phosphatase (42-121) IU/L Troponin I (<0.49) ng/mL Total Protein (6.7-8.2) g/dL Albumin (3.2-5.5) g/dL Globulin (2.1-4.2) g/dL Albumin/Globulin Ratio (1.0-2.2) Lipase (22-51) U/L Urine Color Urine Clarity (CLEAR) Urine pH (5.0-7.5) PH Ur Specific [place] (1.002-1.030) Urine Protein (NEGATIVE) mg/dL Urine Glucose (UA) (NEGATIVE) mg/dL Urine Ketones (NEGATIVE) mg/dL Urine Occult Blood (NEGATIVE) Urine Nitrite (NEGATIVE) Urine Bilirubin (NEGATIVE) Urine Urobilinogen (NORMAL) E.U./dL Ur Leukocyte Esterase (NEGATIVE) Urine RBC (0-5) /HPF Urine WBC (0-5) /HPF Ur Squamous Epith Cells (<= Few) Urine Bacteria (None Seen) /HPF Urine Culture Comments Urine Opiates Screen (NEGATIVE) Ur Oxycodone Screen (NEGATIVE) Urine Methadone Screen (NEGATIVE) Ur Propoxyphene Screen (NEGATIVE) Ur Barbiturates Screen (NEGATIVE) Ur Tricyclics Screen (NEGATIVE) Ur Phencyclidine Scrn (NEGATIVE) Ur Amphetamine Screen (NEGATIVE) U Methamphetamines Scrn (NEGATIVE) U Benzodiazepines Scrn (NEGATIVE) Urine Cocaine Screen (NEGATIVE) U Cannabinoids Screen (NEGATIVE) ABX Reporting Has patient been on IV antibiotics over the past 48 hours?: Yes Sepsis Event Note (H) - Evaluation Current Stage of Sepsis: Ruled out Assessment/Plan - Problem List (1) COPD with acute exacerbation Impression: The patient lives in a transitional housing situation with an emotional support dog. She states that one week ago she decided to quit smoking cold turkey. Her first symptom was a "knot in the back of her neck" in which she knew she was about to get sick. Her next symptoms were extreme shortness of breath, then fatigue, dizziness, chest tightness, left arm numbness, and one episode of s yncope in which she was already sitting on the floor from extreme exhaustion. She did not seek medical care until today since she has a therapy dog and was worried about who would care for the dog if she were not home. A friend now has the dog and the patient was brought in by private car. Once in the ED the patient had a low oxygen on room air at 82%, which improved to 90% on 5L. Today the patient admits to great improvement in her overall well being. She remains very diminished in her bilateral low lobes, with expiratory wheezing, and scattered crackles on exam. She appears less breathless, but not able to wean at lunch time after her nebulizer treatment. She remains on 6-L per nasal cannula and/or oxymask. Plan: Continue IV steroids, IV antibiotics, respiratory care, nebulizers, ABGs if changes in mentation, and further imaging if no improvement. (2) Sinusitis, acute frontal Impression: The patient complains of a headache located in her frontal region of her head during my review of systems. She states that it is not affecting her breathing or vision. Her tympanic membranes have a moderate amount of cerumen, and in her right ear fluid is appreciated behind the membrane which appears yellow. Plan: Continue Afrin x3 days, daily Flonase and debrox gtts x1 for her cerumen overload. Qualifiers: Recurrence: not specified as recurrent Qualified Code(s): J01.10 - Acute frontal sinusitis, unspecified (3) Hypoxia Impression: The patient states that she does not wear oxygen at home, and is not prescribed inhalers. She states that she quit smoking 1 week ago. Upon arrival to the ED she was only 82% on room air and remains on oxygen of 6-8L using nasal cannula for 6L and oxymask for greater than 6L. She has been having more of a cough today especially after her nebulizer treatments. Plan: continue oxygen therapy, respiratory care, treat COPD exacerbation. (4) Anxiety disorder Impression: The patient has been seen out patient for this and was prescribed citalopram in August of 2017. At that appointment she became very frustrated and left the clinic when it was time to discuss dose adjustment. Since that time, she has not been prescribed anything else for her chronic anxiety. She states that her therapy dog that she uses for her emotional support is being looked after by a reliable friend. She is agreeable to staying for the next 2-3 days to treat her COPD. She is hopeful that after this episode, her breathing will be much improved because she has stopped smoking for good. Today, she notes that she has not had any anxiety. Plan: Offer morphine for air hunger, increase O2 for a cough, temazepam for sleep tonight, and monitor for extreme anxiousness. Suggest counseling upon discharge. Qualifiers: Anxiety disorder type: unspecified anxiety disorder Qualified Code(s): F41.9 - Anxiety disorder, unspecified (5) Tobacco abuse Impression: The patient states that she began smoking at age 15 and quit one week ago. She said her maximum was just under 2-3 PPD, and just lately she cut back to 1/2 pack. Her PCP tried to help her with Chantix, but she states this did not work. She has refused a nicotine patch, and again today states that she is done smoking forever. She denies cravings. Plan: Treat this exacerbation, offer nicotine if needed. (6) Dental caries extending into pulp Impression: On exam the patient is found to have poor dentition and this does not appear to be a new problem. Her MUDDs test was + for marijuana and no other illicit drugs. She states that in the 1950's when he mother was with her she was prescribed YINA (diethylstilbestrol; a non-steroidal estrogen first synthesized in 1938) for nausea while , which is what she was told gave her the yellow teeth. She states that all of her child aguilar, her teeth were yellow and she always had cavities. She states that later in life, she lacked dental care as the jobs she had did not offer dental coverage. She states that this month, she had planned to go get the rest of her teeth removed and get fitted for new dentures/implants. She believes that since she has stopped smoking, this will be encouraging that they will not become stained. On exam today she denies soreness in her mouth. She was cautioned that between the new nebulizers and the antibiotics, she may develop thrush or a vaginal yeast infection. Plan: Peridex rinse, regular oral care.
[2018-08-01] MEDS ORDERED: ENOXAPARIN 40 MG/0.4 ML SYRINGE SUBQ SCH (09:00)
[2018-08-01] MEDS ORDERED: POLYETHYLENE GLYCOL 3350 17 GM PACKET PO SCH (09:00)
[2018-08-01 09:27] LABS: HB2 TOTAL 13.5 g/dL; HEMOGLOBIN A1C 0.47 g/dL; HEMOGLOBIN A1C % 5.3 % (4.6-6.2)
[2018-08-01] MEDS ORDERED: NS W/20 MEQ KCL 1,000 ML IV SCH (12:19)
[2018-08-01] MEDS: HYDROcod/ACETAM 5/325 MG TABLET PO PRN ×2 (16:30→23:40)
[2018-08-01] MEDS ORDERED: BENZONATATE 100 MG CAPSULE PO PRN (18:52)
[2018-08-01] MEDS: levoFLOXacin 750 MG/150 ML 750 MG/150 ML BAG IV SCH (19:42)
[2018-08-01] MEDS: TEMAZEPAM 15 MG CAPSULE PO PRN (21:07)
[2018-08-01] MEDS: SODIUM CHLORIDE FLUSH 0.9% 10 ML SYRINGE IVP PRN (21:08)
[2018-08-02 05:09] LABS: BASOPHILS % (AUTO) 0.1 %; HGB - HEMOGLOBIN 12.7 g/dL (12.0-16.0); LYMPHOCYTES # (AUTO) 0.7 10^3/uL (1.5-3.5); LYMPHOCYTES % (AUTO) 7.9 %; MEAN CORPUSCULAR HEMOGLOBIN 31.2 pg (27.0-31.0); MEAN CORPUSCULAR HGB CONC 32.8 g/dL (32.0-36.0); MEAN CORPUSCULAR VOLUME 95.3 fL (81.0-99.0); MEAN PLATELET VOLUME 7.9 fL (7.9-10.8); MONOCYTES # (AUTO) 0.3 10^3/uL (0.0-1.0); MONOCYTES % (AUTO) 3.1 %; NEUTROPHILS # (AUTO) 8.3 10^3/uL (1.5-6.6); NEUTROPHILS % (AUTO) 88.9 %; PLT - PLATELET COUNT 177 10^3/uL (130-450); RED BLOOD COUNT 4.06 10^6/uL (4.20-5.40); RED CELL DISTRIBUTION WIDTH 13.9 % (12.0-15.0); WHITE BLOOD COUNT 9.3 x10^3/uL (4.8-10.8)
[2018-08-02 05:15] LABS: ALBUMIN 3.6 g/dL (3.2-5.5); ALBUMIN/GLOBULIN RATIO 1.2 (1.0-2.2); BILIRUBIN,TOTAL 0.5 mg/dL (0.2-1.0); CALCIUM 8.7 mg/dL (8.5-10.3); CREATININE 0.6 mg/dL (0.4-1.0); MAGNESIUM 2.1 mg/dL (1.7-2.8); TOTAL PROTEIN 6.6 g/dL (6.7-8.2)
[2018-08-02] MEDS: methylPREDNISolone SUCCINATE 125 MG/2 ML VIAL IVP SCH ×3 (05:47→22:07)
[2018-08-02] MEDS: IPRATROPIUM/ALBUTEROL 3 ML NEB INH SCH ×4 (07:39→19:59)
[2018-08-02] MEDS: BUDESONIDE 0.5 MG/2 ML NEB INH SCH ×2 (07:39→19:59)
[2018-08-02] MEDS ORDERED: CARBAMIDE PEROXIDE 6.5% OTIC DROPS EACHEAR ONE (08:09)
[2018-08-02] MEDS: FLUTICASONE NASAL SPRAY NAS SCH (08:09)
[2018-08-02] MEDS: OXYMETAZOLINE NASAL SPRAY NAS SCH ×2 (08:09→20:46)
[2018-08-02] MEDS: guaiFENesin 600 MG TABLET PO SCH (08:12)
[2018-08-02] MEDS: ENOXAPARIN 40 MG/0.4 ML SYRINGE SUBQ SCH (08:12)
[2018-08-02] MEDS: FAMOTIDINE 20 MG TABLET PO SCH ×2 (08:12→20:41)
[2018-08-02] MEDS: CHLORHEXIDINE GLUCONATE 15 ML UDC PO SCH ×2 (08:13→20:41)
[2018-08-02] MEDS: POLYETHYLENE GLYCOL 3350 17 GM PACKET PO SCH (08:13)
--- NOTE | 2018-08-02 08:18 | PROVIDER PROGRESS NOTE ---
Subjective - Prog Note Date Prog Note Date: 08/02/18 Prog Note Time: 08:09 - Subjective Pt reports feeling: Improved Subjective: Nuris states she is having a little trouble with sleeping, but this is acceptable to her with the fact that she feels so much better. She denies chest pain, nausea, vomiting, diarrhea, a rash, bleeding, increased shortness of breath or a new productive cough. She complains that she still feels fatigued, but this may be due to her prolonged illness prior to coming to the ED. *I have provided teaching handouts on COPD and chronic treatments. I have pre- sent Advair, Spiriva, Pro-air and Singular to her pharmacy with anticipation of going home in the next 1-2 days. Current Medications - Current Medications Current Medications: Active Medications: Acetaminophen (Tylenol) 650 mg PO Q4HR PRN Hydrocodone Bitart/Acetaminophen ([place] 5/325) 1 tab PO Q4HR PRN Albuterol/Ipratropium (Duoneb) 3 ml INH Q4HR PRN Albuterol/Ipratropium (Duoneb) 3 ml INH RTQID DIAMANTE Benzonatate (Tessalon) 100 mg PO TID PRN Budesonide (Pulmicort) 0.5 mg INH RTBID DIAMANTE Carbamide Perox/Anhydrous Glycerin (Debrox Otic Drops) 10 drops EACHEAR ONCE ON E Chlorhexidine Gluconate (Peridex) 15 ml PO BID DIAMANTE Enoxaparin Sodium (Lovenox) 40 mg SUBQ DAILY DIAMANTE Famotidine (Pepcid) 20 mg PO BID DIAMANTE Fluticasone Propionate (Flonase) 1 sprays CASANDRA DAILY DIAMANTE Guaifenesin (Mucinex) 600 mg PO BID DIAMANTE Levofloxacin (Levaquin 750 Mg/150 Ml) 750 mg in 150 mls @ 100 mls/hr IV Q24H DIAMANTE Methylprednisolone Sodium Succinate (Solu-Medrol (125mg Vial)) 40 mg IVP TID DIAMANTE Ondansetron HCl (Zofran Inj) 4 mg IVP Q6HR PRN Ondansetron HCl (Zofran Odt) 4 mg TL Q6HR PRN Oxymetazoline HCl (Afrin) 2 sprays CASANDRA BID DIAMANTE Polyethylene Glycol (Miralax) 17 gm PO DAILY DIAMANTE Temazepam (Restoril) 15 mg PO QPM PRN --No home meds-- Objective - Vital Signs/Intake & Output Reviewed Vital Signs: Yes Vital Signs: Vital Signs x48h Temp Pulse Pulse Resp BP Pulse Ox 08/02/18 08:00 36.6 C 60 18 124/57 L 97 08/02/18 07:39 60 18 Intake & Output: Intake & Output 07/30/18 07/31/18 08/01/18 08/02/18 23:59 23:59 23:59 23:59 Intake Total 718.121 8048.834 120 Output Total 250 500 Balance 746.304 6795.834 120 - Objective General Appearance: positive: No acute distress, Alert Eyes Bilateral: positive: PERRL ENT: positive: Pharynx nml, Oral lesions (poor oral condition at baseline), Dry mucous membranes, Other (packed cerumen left greater than right.) Neck: positive: Thyroid nml, No JVD, Lymphadenopathy (R), Lymphadenopathy (L) Respiratory: positive: Chest non-tender, No respiratory distress, Other (diminished without wheezing) Cardiovascular: positive: Regular rate & rhythm, No gallop, Systolic murmur Peripheral Pulses: 1+ Radial (R), 1+ Radial (L) Abdomen: positive: Non-tender, Nml bowel sounds, Other (rounded) Back: positive: Nml inspection Skin: positive: No rash, Warm, Dry Extremities: positive: Non-tender, Full ROM, No pedal edema Neurologic/Psychiatric: positive: Oriented x3, CN's nml (2-12), Motor nml, Sensation nml, Mood/affect nml Reflexes: Bicep (R): 3+, Bicep (L): 3+ - Lab Results Fish Bones: 08/02/18 04:48 08/02/18 04:48 Other Labs: Lab Results x24hrs 08/02/18 08/02/18 08/01/18 Range/Units 04:48 04:48 04:58 WBC 9.3 (4.8-10.8) x10^3/uL RBC 4.06 L (4.20-5.40) 10^6/uL Hgb 12.7 (12.0-16.0) g/dL Hct 38.7 (37.0-47.0) % MCV 95.3 (81.0-99.0) fL MCH 31.2 H (27.0-31.0) pg MCHC 32.8 (32.0-36.0) g/dL RDW 13.9 (12.0-15.0) % Plt Count 177 (130-450) 10^3/uL MPV 7.9 (7.9-10.8) fL Neut # (Auto) 8.3 H (1.5-6.6) 10^3/uL Lymph # (Auto) 0.7 L (1.5-3.5) 10^3/uL Gray # (Auto) 0.3 (0.0-1.0) 10^3/uL Eos # (Auto) 0.0 (0.0-0.7) 10^3/uL Baso # (Auto) 0.0 (0.0-0.1) 10^3/uL Absolute Nucleated RBC 0.01 x10^3/uL Nucleated RBC % 0.1 /100WBC Sodium 138 (135-145) mmol/L Potassium 4.7 (3.5-5.0) mmol/L Chloride 105 (101-111) mmol/L Carbon Dioxide 30 (21-32) mmol/L Anion Gap 3.0 L (6-13) BUN 17 (6-20) mg/dL Creatinine 0.6 (0.4-1.0) mg/dL Estimated GFR (MDRD) 101 (>89) Glucose 140 H (70-100) mg/dL Glycated Hemoglobin 5.3 (4.6-6.2) % Estim Average Glucose 105 H (70-100) Calcium 8.7 (8.5-10.3) mg/dL Magnesium 2.1 (1.7-2.8) mg/dL Total Bilirubin 0.5 (0.2-1.0) mg/dL AST 21 (10-42) IU/L ALT 27 (10-60) IU/L Alkaline Phosphatase 38 L (42-121) IU/L Total Protein 6.6 L (6.7-8.2) g/dL Albumin 3.6 (3.2-5.5) g/dL Globulin 3.0 (2.1-4.2) g/dL Albumin/Globulin Ratio 1.2 (1.0-2.2) ABX Reporting Has patient been on IV antibiotics over the past 48 hours?: Yes Sepsis Event Note (H) - Evaluation Current Stage of Sepsis: Ruled out Assessment/Plan - Problem List (1) COPD with acute exacerbation Impression: The patient lives in a transitional housing situation with an emotional support dog. She states that one week ago she decided to quit smoking cold turkey. Her first symptom was a "knot in the back of her neck" in which she knew she was about to get sick. Her next symptoms were extreme shortness of breath, then fatigue, dizziness, chest tightness, left arm numbness, and one episode of syncope in which she was already sitting on the floor from extreme exhaustion. She did not seek medical care until today since she has a therapy dog and was worried about who would care for the dog if she were not home. A friend now has the dog and the patient was brought in by private car. Once in the ED the patient had a low oxygen on room air at 82%, which improved to 90% on 5L. This morning, the patient states that she has been up since 04AM because her mind was in overload. She admits to better activity tolerance. She remains on 3-5L per nasal cannula, with plans to continue weaning. *Singular, Advair, Proair, and Spiriva have been present to her pharmacy in anticipation for discharge either tomorrow or the next day. Plan: Continue IV steroids at a lower dose, IV antibiotics, respiratory care, nebulizers, ABGs if changes in mentation, and further imaging if no improvement. (2) Sinusitis, acute frontal Impression: The patient complains of a headache located in her frontal region of her head during my review of systems. She states that it is not affecting her breathing or vision. Her tympanic membranes have a moderate amount of cerumen, and in her right ear fluid is appreciated behind the membrane which appears yellow. Plan: Continue Afrin x3 days, daily Flonase and debrox gtts x1 for her cerumen overload. Qualifiers: Recurrence: not specified as recurrent Qualified Code(s): J01.10 - Acute frontal sinusitis, unspecified (3) Hypoxia Impression: The patient states that she does not wear oxygen at home, and is not prescribed inhalers. She states that she quit smoking 1 week ago. Upon arrival to the ED she was only 82% on room air and remains on oxygen of 5L using nasal cannula this morning which is a great improvement from 24 hours ago in which she was having more coughing spells an was unable to wean from 6-8L. Her cough remains non-productive and she is tolerating her nebulizer treatments. Plan: continue oxygen therapy, respiratory care, treat COPD exacerbation. Likely a walking oxygen test prior to discharge. (4) Anxiety disorder Impression: The patient has been seen out patient for this and was prescribed citalopram in August of 2017. At that appointment she became very frustrated and left the clinic when it was time to discuss dose adjustment. Since that time, she has not been prescribed anything else for her chronic anxiety. She states that her therapy dog that she uses for her emotional support is being looked after by a reliable friend. She is agreeable to staying for the next 2-3 days to treat her COPD. Today, she states she is doing ok without her dog, but looks forward to getting home. Plan: Offer morphine for air hunger, increase O2 for a cough, temazepam for sleep tonight, and monitor for extreme anxiousness. Suggest counseling upon discharge. Qualifiers: Anxiety disorder type: unspecified anxiety disorder Qualified Code(s): F41. 9 - Anxiety disorder, unspecified (5) Tobacco abuse Impression: The patient states that she began smoking at age 15 and quit one week ago. She said her maximum was just under 2-3 PPD, and just lately she cut back to 1/2 pack. Her PCP tried to help her with Chantix, but she states this did not work. She has refused a nicotine patch, and states that she is done smoking forever. She denies cravings. Plan: Treat this exacerbation, offer nicotine if needed. (6) Dental caries extending into pulp Impression: On exam the patient is found to have poor dentition and this does not appear to be a new problem. Her MUDDs test was + for marijuana and no other illicit drugs. She states that in the 1950's when he mother was with her she was prescribed YINA (diethylstilbestrol; a non-steroidal estrogen first synthesized in 1938) for nausea while , which is what she was told gave her the yellow teeth. She states that all of her child aguilar, her teeth were yellow and she always had cavities. She states that later in life, she lacked dental care as the jobs she had did not offer dental coverage. She states that this month, she had planned to go get the rest of her teeth removed and get fitted for new dentures/implants. She believes that since she has stopped smoking, this will be encouraging that they will not become stained. On exam she denies soreness in her mouth. She was cautioned that between the new nebulizers and the antibiotics, she may develop thrush or a vaginal yeast infection. Plan: Peridex rinse, regular oral care. (7) Constipation Impression: The patient states that she has not moved her bowels since before admission. She has a soft abdomen, has been tolerating more of her meals and denies abdominal pain. Plan: Lactulose daily, monitor for BMs. Qualifiers: Constipation type: drug induced constipation Qualified Code(s): K59.03 - Drug induced constipation
[2018-08-02] MEDS: SODIUM CHLORIDE FLUSH 0.9% 10 ML SYRINGE IVP SCH ×3 (08:19→19:09)
[2018-08-02] MEDS ORDERED: guaiFENesin 600 MG TABLET PO PRN (09:06)
[2018-08-02] MEDS: LACTULOSE 10 GM /15 ML UDC PO SCH (10:22)
[2018-08-02] MEDS: HYDROcod/ACETAM 5/325 MG TABLET PO PRN (10:22)
[2018-08-02] MEDS: SODIUM CHLORIDE FLUSH 0.9% 10 ML SYRINGE IVP PRN (11:05)
[2018-08-02] MEDS: levoFLOXacin 750 MG/150 ML 750 MG/150 ML BAG IV SCH (19:00)
[2018-08-02] MEDS: TEMAZEPAM 15 MG CAPSULE PO PRN (22:05)
[2018-08-03 06:10] LABS: BASOPHILS % (AUTO) 0.1 %; HGB - HEMOGLOBIN 12.2 g/dL (12.0-16.0); LYMPHOCYTES # (AUTO) 1.1 10^3/uL (1.5-3.5); LYMPHOCYTES % (AUTO) 12.1 %; MEAN CORPUSCULAR HEMOGLOBIN 31.5 pg (27.0-31.0); MEAN CORPUSCULAR HGB CONC 33.6 g/dL (32.0-36.0); MEAN CORPUSCULAR VOLUME 93.9 fL (81.0-99.0); MEAN PLATELET VOLUME 7.5 fL (7.9-10.8); MONOCYTES # (AUTO) 0.5 10^3/uL (0.0-1.0); MONOCYTES % (AUTO) 5.8 %; NEUTROPHILS # (AUTO) 7.5 10^3/uL (1.5-6.6); PLT - PLATELET COUNT 199 10^3/uL (130-450); RED BLOOD COUNT 3.89 10^6/uL (4.20-5.40); RED CELL DISTRIBUTION WIDTH 14.4 % (12.0-15.0); WHITE BLOOD COUNT 9.1 x10^3/uL (4.8-10.8)
[2018-08-03 06:23] LABS: ALBUMIN 3.3 g/dL (3.2-5.5); ALBUMIN/GLOBULIN RATIO 1.1 (1.0-2.2); BILIRUBIN,TOTAL 0.3 mg/dL (0.2-1.0); CREATININE 0.7 mg/dL (0.4-1.0); TOTAL PROTEIN 6.4 g/dL (6.7-8.2)
[2018-08-03] MEDS: IPRATROPIUM/ALBUTEROL 3 ML NEB INH SCH ×3 (07:09→14:42)
[2018-08-03] MEDS: BUDESONIDE 0.5 MG/2 ML NEB INH SCH (07:10)
[2018-08-03] MEDS: FAMOTIDINE 20 MG TABLET PO SCH (08:34)
[2018-08-03] MEDS: predniSONE 20 MG TABLET PO SCH ×2 (08:34→08:35)
[2018-08-03] MEDS: LACTULOSE 10 GM /15 ML UDC PO SCH (08:35)
[2018-08-03] MEDS: ENOXAPARIN 40 MG/0.4 ML SYRINGE SUBQ SCH (08:38)
[2018-08-03] MEDS: CHLORHEXIDINE GLUCONATE 15 ML UDC PO SCH (08:39)
[2018-08-03] MEDS: FLUTICASONE NASAL SPRAY NAS SCH (08:40)
[2018-08-03] MEDS: OXYMETAZOLINE NASAL SPRAY NAS SCH (08:40)
[2018-08-03] MEDS: POLYETHYLENE GLYCOL 3350 17 GM PACKET PO SCH (08:41)
[2018-08-03] MEDS: SODIUM CHLORIDE FLUSH 0.9% 10 ML SYRINGE IVP SCH (08:42)
--- NOTE | 2018-08-03 10:36 | Discharge Plan ---
Discharge Plan Disposition: 01 Home, Self Care Condition: Good Prescriptions: Albuterol Sulfate [Proair Hfa Inhaler] 1 - 2 puffs INH Q4H PRN #1 inhaler PRN Reason: Shortness Of Air/Wheezing Alprazolam [Xanax] 0.25 mg PO Q4H #30 tablet Aspirin [Adult Aspirin] 81 mg PO DAILY #30 tablet.dr Benzonatate [Tessalon] 100 mg PO TID PRN #30 capsule PRN Reason: Cough Chlorhexidine Gluconate [Peridex] 15 ml MM BID #60 mouthwash Fluticasone [Flonase] 1 sprays CASANDRA DAILY #1 bottle Fluticasone/Salmeterol [Advair 250-50 Diskus] 1 each IH BID #1 blst.w.dev levoFLOXacin [Levaquin] 500 mg PO DAILY #5 tablet Montelukast [Singulair] 10 mg PO QPM #30 tablet Nicotine 14 mg Patch [Nicoderm] 1 each TOP Q24H #7 patch Nicotine 7 mg Patch [Nicoderm] 1 each TOP Q24H #7 patch Prednisone 10 mg PO DAILY #13 tab.ds.pk Saccharomyces Boulardii [Florastor] 250 mg PO BID #60 capsule Tiotropium [place] [Spiriva] 18 mcg IH DAILY #30 cap.w.dev Diet: Regular Activity Restrictions: Activity as Tolerated Shower Restrictions: No Driving Restrictions: No Instruction Topics: Tiotropium inhalation powder, Anxiety Body Response, COPD Additional Instructions or Follow Up instructions: You were admitted for a COPD (chronic obstructive pulmonary disease) exacerbation in which you had struggle for several days prior to coming in. You were given high dose steroids that were slowly decreased and you should continue this steroid taper (prednisone) at home. You were given scheduled nebulizers, which should include at home; I have pre- sent these inhalers to the pharmacy. You qualify for pulmonary rehab, please ask Jhonny to order this at your follow up appointment, as well as seeing a pulmonology provider. A walking oxygen test was completed which shows a need for oxygen at rest of 3L per nasal cannula and with exertion, 5L per nasal cannula. Please have an echocardiogram as an outpatient with a medical indication of COPD, chronic oxygen use, evaluate for pulmonary hypertension, cardiac murmur, which needs to be ordered by your PCP. Please see Jhonny Bell within one week. Follow-Up Care: [facility] - Pulmonary No Smoking: If you smoke, Please STOP! Call for help. Follow-up with: Jhonny Bell PA-C [Primary Care Provider] -
--- NOTE | 2018-08-03 10:39 | DISCHARGE SUMMARY ---
Discharge Summary Admit Date: 07/31/18 Discharge Date: 08/03/18 Discharging Provider: DOREEN Madison Primary Care Provider: Jhonny Bell Code Status: Attempt Resuscitation Condition at Discharge: Good Discharge Disposition: 01 Home, Self Care - DIAGNOSES Admission Diagnoses: Chronic obstructive pulmonary disease w (acute) exacerbation (J44.1) Hypoxemia (R09.02) Anxiety disorder, unspecified (F41.9) Tobacco use (Z72.0) Dental caries, unspecified (K02.9) Essential (primary) hypertension (I10) Discharge Diagnoses with Status of Each Condition: COPD exacerbation (J44.1) new on this admission, care to continue at home with chronic inhalers, singular, steroid taper. Hypoxia (R09.02) ongoing, now requires home oxygen. Anxiety disorder (F41.9) chronic, exacerbated during this hospital stay, Xanax prescribed. Tobacco abuse (Z72.0) Committed to quit smoking, pulmonary rehab referral is indicated. Sinusitis chronic, frontal (J32.1) chronic, continue nasal sprays. Constipation (K59.00) stable. Hypertension (I10) No new medication, baby ASA for preventative. Tobacco dependence (F17.200) chronic, nicotine patches sent to the pharmacy. Oxygen dependent (Z99.81) new on this admission. Services set up through [facility] (R05) improved, continue treatment for COPD, tessalon pearls. Dental caries extending into pulp (K02.9) chronic, continue daily Peridex rinse. - HPI History of Present Illness: Nuris Silver is an older appearing 62-year old female with a past medical history of homelessness, COPD, anxiety, sciatica, shingles, hypertension, caffeine use, and life long tobacco dependence, but quit 1 week ago. The patient lives in a transitional housing situation with an emotional support dog. She states that one week ago she decided to quit smoking cold turkey. Her first symptom was a "knot in the back of her neck" in which she knew she was about to get sick. Her next symptoms were extreme shortness of breath, then fatigue, dizziness, chest tightness, left arm numbness, anxiety, and one episode of syncope in which she was already sitting on the floor from extreme exhaustion. She did not seek medical care until today since she has a therapy dog and was worried about who would care for the dog if she were not home. A friend now has the dog and the patient was brought in by private car. Once in the ED the patient had a low oxygen on room air at 82%, which improved to 90% on 5L. Imaging showed COPD without evidence of pneumonia. On my exam she can speak in full sentences, but requires 5L per oxy mask. She was using her accessory muscles, and was warm and dry. She denies dizziness, nausea, vomiting, a productive cough, bleeding, bruising, or worsening shortness of breath since arriving in the ED. She was admitted to inpatient for this COPD exacerbation. - HOSPITAL COURSE Hospital Course: The patient was profoundly decompensated upon admission from the ED as she had been struggling at home with URI symptoms at least one week prior. She has required oxygen for her entire stay. She was treated aggressively with IV steroid, and tapered to Prednisone that will be continued a home. She was also given Levofloxacin due to her PCN allergy that will continue at home for 5 days. She was taught about the proper treatment of her COPD using a LABA, LAMA, singular nightly, and a rescue inhaler, which have sent to her pharmacy. She expressed that she has had horrible anxiety for years and in the past providers have tried to treat this with antidepressants, which has frustrated her greatly. She was started on a short acting benzo, Xanax and was given a prescription to continue at home as it should not depress her respiratory system and wear off quickly. She was found to have cerumen, given debrox solution and treated for acute on chronic sinusitis using a 3 day course of Afrin spray and Flonase daily. She became very distraught, but thankful on the day prior to discharge given all of the upcoming changes with her health. She was counseled at length and she felt empowered after Dr. Salamanca met her personally to introduce pulmonary rehab to her of which she is very excited to get started with. The patient was medically stable (in a chronic stable state) at the time of discharge. All prescriptions were sent to her pharmacy. She was excited to return home and plans to follow up as requested with PCP, and pulmonary rehab. The patient underwent a walking oxygen test with respiratory therapy: A [id number] exam and explanation in which results were discussed. The patient had low oxygen saturations at rest without oxygen of 87% on room air, which improved to 92% with 3L per nasal cannula oxygen. While ambulating, the p atient required 4L of oxygen per nasal cannula with an oxygen saturation of 92%, but on 3L could only reach an oxygen saturation of 86%. She had to take a break after only a few steps during this test as her endurance was poor due to her prolonged bed rest associated with this hospital stay. She was able to complete 50 feet of walking for the purposes of this test. I am ordering 3L per nasal ca nnula to be continuously worn at rest and 4L per nasal cannula with activity. - ALLERGIES Allergies/Adverse Reactions: Allergies Allergy/AdvReac Type Severity Reaction Status Date / Time penicillin V Allergy Severe Hives Verified 07/31/18 16:34 pollen extracts Allergy Intermediate Stuffy/Runny Verified 07/31/18 16:34 nose codeine AdvReac Severe Hives Verified 07/31/18 18:26 - MEDICATIONS Home Medications: Ambulatory Orders Medication Instructions Recorded Confirmed Albuterol Sulfate [Proair Hfa 1 - 2 puffs INH Q4H PRN #1 inhaler 08/02/18 Inhaler] Fluticasone/Salmeterol [Advair 1 each IH BID #1 blst.w.dev 08/02/18 250-50 Diskus] Montelukast [Singulair] 10 mg PO QPM #30 tablet 08/02/18 Tiotropium [place] [Spiriva] 18 mcg IH DAILY #30 cap.w.dev 08/02/18 Alprazolam [Xanax] 0.25 mg PO Q4H #30 tablet 08/03/18 Aspirin [Adult Aspirin] 81 mg PO DAILY #30 tablet.dr 08/03/18 Benzonatate [Tessalon] 100 mg PO TID PRN #30 capsule 08/03/18 Chlorhexidine Gluconate [Peridex] 15 ml MM BID #60 mouthwash 08/03/18 Fluticasone [Flonase] 1 sprays CASANDRA DAILY #1 bottle 08/03/18 Nicotine 14 mg Patch [Nicoderm] 1 each TOP Q24H #7 patch 08/03/18 Nicotine 7 mg Patch [Nicoderm] 1 each TOP Q24H #7 patch 08/03/18 Prednisone 10 mg PO DAILY #13 tab.ds.pk 08/03/18 Saccharomyces Boulardii [Florastor] 250 mg PO BID #60 capsule 08/03/18 levoFLOXacin [Levaquin] 500 mg PO DAILY #5 tablet 08/03/18 - PHYSICAL EXAM AT DISCHARGE General Appearance: positive: No acute distress, Alert, Anxious Eyes Bilateral: positive: PERRL ENT: positive: Pharynx nml, Dry mucous membranes Neck: positive: Thyroid nml, No JVD, Trachea midline, Lymphadenopathy (R), Lymphadenopathy (L) Respiratory: positive: Chest non-tender, No respiratory distress, Breath sounds nml, Wheezes, Rhonchi Cardiovascular: positive: Regular rate & rhythm, No gallop, Systolic murmur Peripheral Pulses: positive: 2+ Abdomen: positive: Non-tender, Nml bowel sounds, Other (rounded, soft) Back: positive: Nml inspection Skin: positive: No rash, Warm, Dry, Other (bronze) Extremities: positive: Non-tender, Full ROM, Nml appearance, No pedal edema Neurologic/Psychiatric: positive: Oriented x3, CN's nml (2-12), Motor nml, Sensation nml, Mood/affect nml Reflexes: Bicep (R): 3+, Bicep (L): 3+ - LABS Result Diagrams: 08/03/18 06:03 08/03/18 06:03 - DIAGNOSTIC IMAGING Diagnostic Imaging Results: Final report reviewed Diagnostic Imaging Results Comments: EXAM: CHEST RADIOGRAPHY EXAM DATE: 07/31/2018 02:22 PM IMPRESSION: COPD. No lobar consolidation. ECHOCARDIOGRAM: was ordered, but not completed due to lack of staff. - SEPSIS Current Stage of Sepsis: Ruled out - FOLLOW UP Follow Up: Disposition: Home with home oxygen Condition: Good Prescriptions: Albuterol Sulfate [Proair Hfa Inhaler] 1 - 2 puffs INH Q4H PRN #1 inhaler PRN Reason: Shortness Of Air/Wheezing Alprazolam [Xanax] 0.25 mg PO Q4H #30 tablet Aspirin [Adult Aspirin] 81 mg PO DAILY #30 tablet. Benzonatate [Tessalon] 100 mg PO TID PRN #30 capsule PRN Reason: Cough Chlorhexidine Gluconate [Peridex] 15 ml MM BID #60 mouthwash Fluticasone [Flonase] 1 sprays CASANDRA DAILY #1 bottle Fluticasone/Salmeterol [Advair 250-50 Diskus] 1 each IH BID #1 blst.w.dev levoFLOXacin [Levaquin] 500 mg PO DAILY #5 tablet Montelukast [Singulair] 10 mg PO QPM #30 tablet Nicotine 14 mg Patch [Nicoderm] 1 each TOP Q24H #7 patch Nicotine 7 mg Patch [Nicoderm] 1 each TOP Q24H #7 patch Prednisone 10 mg PO DAILY #13 tab.ds.pk Saccharomyces Boulardii [Florastor] 250 mg PO BID #60 capsule Tiotropium [place] [Spiriva] 18 mcg IH DAILY #30 cap.w.dev Additional Instructions or Follow Up instructions: You were admitted for a COPD (chronic obstructive pulmonary disease) exacerbation in which you had struggle for several days prior to coming in. You were given high dose steroids that were slowly decreased and you should continue this steroid taper (prednisone) at home. You were given scheduled nebulizers, which should include at home; I have pre-sent these inhalers to the pharmacy. You qualify for pulmonary rehab, please ask Jhonny to order this at your follow up appointment, as well as seeing a pulmonology provider. A walking oxygen test was completed and shows a need for oxygen at rest of 3L, and 4L with activity. Please have an echocardiogram as an outpatient with a medical indication of COPD, chronic oxygen use, evaluate for pulmonary hypertension, cardiac murmur, which needs to be ordered by your PCP. Please see Jhonny Bell within one week. - TIME SPENT Time Spent in Discharge (Minutes): 55
[2018-08-03] MEDS: HYDROcod/ACETAM 5/325 MG TABLET PO PRN (11:11)
[2018-08-03] MEDS ORDERED: ALPRAZolam 0.25 MG TABLET PO PRN (13:17)
[2018-08-03] MEDS ORDERED: SODIUM CHLORIDE 0.65% NASAL SPRAY NAS PRN (13:18)
[2018-08-03] MEDS ORDERED: levoFLOXacin 250 MG TABLET PO SCH ×2 (15:00→17:00)
[2018-08-03 15:30] VITALS: BP 149/76
== END 2018-08-03 15:44 | disposition home or self-care (01) | DRG 192 ==
LOC: ED 13:38 → MS2 16:51 → ED 17:37
PROVIDERS: ADMIT Nurse Practitioner; ATTEND Nurse Practitioner
DX: J43.9 Emphysema, unspecified (principal); R09.02 Hypoxemia; F41.9 Anxiety disorder, unspecified; Z87.891 Personal history of nicotine dependence; J32.9 Chronic sinusitis, unspecified; K59.00 Constipation, unspecified; I10 Essential (primary) hypertension; Z99.81 Dependence on supplemental oxygen; K02.9 Dental caries, unspecified; R05 Cough; M54.30 Sciatica, unspecified side; Z88.6 Allergy status to analgesic agent; Z88.0 Allergy status to penicillin; Z79.82 Long term (current) use of aspirin; Z79.52 Long term (current) use of systemic steroids; I25.10 Atherosclerotic heart disease of native coronary artery without angina pectoris; R01.1 Cardiac murmur, unspecified; G62.9 Polyneuropathy, unspecified; R25.1 Tremor, unspecified; R32 Unspecified urinary incontinence; R35.0 Frequency of micturition; F32.9 Major depressive disorder, single episode, unspecified; F43.10 Post-traumatic stress disorder, unspecified; M19.90 Unspecified osteoarthritis, unspecified site; G89.29 Other chronic pain; M54.9 Dorsalgia, unspecified; Z90.49 Acquired absence of other specified parts of digestive tract; F12.10 Cannabis abuse, uncomplicated; R51 Headache
CPT/HCPCS: 36415; 71046; 80053; 80306; 81001; 83036; 83605; 83690; 83735; 84100; 84484; 85025; 87070; 87086; 87205; 93005; 94640; 94664; 94761; 96365; 96375; 99283; 99284; 99285; 99406

== ENCOUNTER 2018-10-08 15:26 | Outpatient (CLI) | payer MEDICAID ==
--- NOTE | 2018-10-08 16:14 | XRAY Report ---
Reason: PREOP Procedure Date: 10/08/2018 Accession Number: [id number] / [id number] Procedure: XRN - Chest 2 View X-Ray CPT Code: 79330 FULL RESULT: EXAM: CHEST RADIOGRAPHY EXAM DATE: 10/08/2018 03:41 PM. CLINICAL HISTORY: COPD. Preoperative planning. COMPARISON: CHEST 2 VIEW 07/31/2018 2:10 PM. TECHNIQUE: 2 views. FINDINGS: Lungs/Pleura: No focal opacities evident. No pleural effusion. No pneumothorax. Normal volumes. Mediastinum: Heart and mediastinal contours are top normal for size with subtle aortic arch calcifications. Other: None. IMPRESSION: No acute airspace disease. RADIA
== END 2018-10-08 15:27 | disposition home or self-care (01) ==
LOC: DI.N 15:26
PROVIDERS: ATTEND Physician Assistant Medical
DX: J44.9 Chronic obstructive pulmonary disease, unspecified (principal)
CPT/HCPCS: 71046

== ENCOUNTER 2018-12-27 16:09 | Emergency (ER) | payer MEDICAID ==
[2018-12-27 16:16] VITALS: BP 156/78
--- NOTE | 2018-12-27 16:34 | ED Physician Documentation ---
PD HPI LOWER EXT INJURY - Stated complaint Stated Complaint: RT ANKLE PX - Chief complaint Chief Complaint: Ext Problem - History obtained from History obtained from: Patient - History of Present Illness PD HPI LOW EXT INJURY LOCATION: Right, Ankle Type of injury: Twist Where injury occurred: Park Timing - onset: Today Timing - duration: Hours Timing - details: Abrupt onset, Still present Improved by: Rest, Ice, Immobilization Worsened by: Moving, Palpating Associated symptoms: Swelling. No: Weakness, Numbness, Tingling Contributing factors: No: Anticoagulated Similar symptoms before: Diagnosis (srain and fracture) - Additional information Additional information: 63-year-old female was at the [employer] today walking on some round boulders when she inverted her foot and twisted her ankle. She is complaining of some pain to the distal tibia and over the proximal fifth. She was able to drive home to b ring her dog back home and then come to the emergency department she has significant amount of swelling. Review of Systems Constitutional: denies: Fever Eyes: denies: Decreased vision Throat: denies: Sore throat Respiratory: denies: Cough GI: denies: Vomiting PD PAST MEDICAL HISTORY - Past Medical History Cardiovascular: Hypertension, Coronary artery disease, Murmur Respiratory: COPD, Emphysema, Shortness of breath Neuro: Headaches, Peripheral neuropathy, Tremors Endocrine/Autoimmune: None GI: GERD : Incontinence (stress), Frequency HEENT: Chronic sinusitis Psych: Depression, Anxiety, Post traumatic stress disorder Musculoskeletal: Osteoarthritis, Chronic back pain Derm: None - Past Surgical History Past Surgical History: Yes General: Cholecystectomy, Other - Present Medications Home Medications: Ambulatory Orders Medication Instructions Recorded Confirmed Albuterol Sulfate [Proair Hfa 1 - 2 puffs INH Q4H PRN #1 inhaler 08/02/18 Inhaler] Fluticasone/Salmeterol [Advair 1 each IH BID #1 blst.w.dev 08/02/18 250-50 Diskus] Montelukast [Singulair] 10 mg PO QPM #30 tablet 08/02/18 Tiotropium [place] [Spiriva] 18 mcg IH DAILY #30 cap.w.dev 08/02/18 Alprazolam [Xanax] 0.25 mg PO Q4H #30 tablet 08/03/18 Aspirin [Adult Aspirin] 81 mg PO DAILY #30 08/03/18 Benzonatate [Tessalon] 100 mg PO TID PRN #30 capsule 08/03/18 Chlorhexidine Gluconate [Peridex] 15 ml MM BID #60 mouthwash 08/03/18 Fluticasone [Flonase] 1 sprays CASANDRA DAILY #1 bottle 08/03/18 Nicotine 14 mg Patch [Nicoderm] 1 each TOP Q24H #7 patch 08/03/18 Nicotine 7 mg Patch [Nicoderm] 1 each TOP Q24H #7 patch 08/03/18 Prednisone 10 mg PO DAILY #13 tab.ds.pk 08/03/18 Saccharomyces Boulardii [Florastor] 250 mg PO BID #60 capsule 08/03/18 levoFLOXacin [Levaquin] 500 mg PO DAILY #5 tablet 08/03/18 - Allergies Allergies/Adverse Reactions: Allergies Allergy/AdvReac Type Severity Reaction Status Date / Time penicillin V Allergy Severe Hives Verified 12/27/18 16:15 pollen extracts Allergy Intermediate Stuffy/Runny Verified 12/27/18 16:15 nose codeine AdvReac Severe Hives Verified 12/27/18 16:15 - Social History Does the pt smoke?: Yes Smoking Status: Former smoker Does the pt drink ETOH?: Yes Does the pt have substance abuse?: Yes - POLST Patient has POLST: No POLST Status: Full Code PD ED PE NORMAL - Vitals Vital signs reviewed: Yes (hypertensive ) - General General: Alert and oriented X 3, No acute distress, Well developed/nourished - HEENT HEENT: Atraumatic, PERRL, EOMI - Respiratory Respiratory: No respiratory distress - Extremities Extremities: No deformity, Other (There is swelling and point tenderness to the lateral malleolus and some tenderness that extends up the fibula. There is some tenderness to the proximal 5th as well. 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 Lateral malleolus bone spur suspected. There are small bone fragment seen distal to this which could represent small acute avulsion fractures versus chronic. Acute fracture at the base of the fifth metatarsal, minimally displaced.), EMP read indepedently, See rad report foot Radiology: Prelim report reviewed (Impression: Nondisplaced avulsion fracture at the base of the fifth metatarsal bone.), EMP read indepedently, See rad report Procedures - Splint (location) ankle Splint applied by: Tech Type of splint: Fiberglass, Posterior Other: Patient tolerated well, No complications, Neurovascular intact, Good alignment, Crutches provided PD MEDICAL DECISION MAKING - ED course Complexity details: reviewed results, re-evaluated patient, considered differential, d/w patient ED course: 63-year-old female with a twisted ankle has tenderness over the proximal fifth metatarsal and she has a nondisplaced fracture there. She has a lot of lateral soft tissue swelling as well. She is initially diagnosed with a sprained ankle and films of the foot are obtained she is inadvertently discharged from the hospital and call back to have her posterior splint placed. Departure - Departure Disposition: 01 Home, Self Care Clinical Impression: Metatarsal boss of right foot Ankle sprain Qualifiers: Encounter type: initial encounter Involved ligament of ankle: calcaneofibular ligament Laterality: right Qualified Code(s): S93.411A - Sprain of calcaneofibular ligament of right ankle, initial encounter Condition: Stable Instructions: ED Sprain Ankle W X Ray, ED Fx Foot Follow-Up: Jhonny Bell PA-C [Primary Care Provider] - [facility] [Provider Group] Discharge Date/Time: 12/27/18 18:31
--- NOTE | 2018-12-27 16:55 | XRAY Report ---
Reason: rolling injury, pain with ambulation Procedure Date: 12/27/2018 Accession Number: [id number] / [id number] Procedure: XR - Ankle 3 View RT CPT Code: FULL RESULT: EXAM: RIGHT ANKLE RADIOGRAPHY EXAM DATE: 12/27/2018 04:42 PM. CLINICAL HISTORY: Rolling injury, pain with ambulation. COMPARISON: None. TECHNIQUE: 3 views. FINDINGS: Large amount of lateral ankle soft tissue swelling. Lateral malleolus bone spurs suspected. There are small bone fragment seen distal to this which could represent small acute avulsion fractures versus chronic. Acute fracture at the base of the 5th metatarsal, minimally displaced. No subluxation. IMPRESSION: Large amount of lateral ankle soft tissue swelling. Lateral malleolus bone spurs suspected. There are small bone fragment seen distal to this which could represent small acute avulsion fractures versus chronic. Acute fracture at the base of the 5th metatarsal, minimally displaced. RADIA
[2018-12-27] MEDS ORDERED: IBUPROFEN 600 MG TABLET PO STA (17:29)
--- NOTE | 2018-12-27 18:37 | XRAY Report ---
Reason: rolled ankle proximal 5th pain Procedure Date: 12/27/2018 Accession Number: [id number] / [id number] Procedure: XR - Foot 3 View RT CPT Code: FULL RESULT: EXAM: RIGHT FOOT RADIOGRAPHY EXAM DATE: 12/27/2018 05:40 PM. CLINICAL HISTORY: Right foot pain. COMPARISON: None. TECHNIQUE: 3 views. FINDINGS: Bones: Nondisplaced avulsion fracture at the base of the fifth metatarsal bone is seen. The remainder osseous structures are intact. Joints: Mild degenerative changes are seen in the first MTP joint. Alignment is preserved. Soft Tissues: Mild soft tissue swelling is seen in the midfoot structures. IMPRESSION: Nondisplaced avulsion fracture at the base of the fifth metatarsal bone. RADIA
== END 2018-12-27 18:31 | disposition home or self-care (01) ==
LOC: ED 16:09
DX: S92.354A Nondisplaced fracture of fifth metatarsal bone, right foot, initial encounter for closed fracture (principal); S93.411A Sprain of calcaneofibular ligament of right ankle, initial encounter; X50.1XXA Overexertion from prolonged static or awkward postures, initial encounter; Y93.01 Activity, walking, marching and hiking; Y92.830 Public park as the place of occurrence of the external cause; I10 Essential (primary) hypertension; Z79.82 Long term (current) use of aspirin; Z87.891 Personal history of nicotine dependence
CPT/HCPCS: 29515; 73610; 73630; 99282; 99283; A9270

== ENCOUNTER 2019-06-11 12:03 | Emergency (ER) | payer MEDICAID ==
[2019-06-11 12:10] VITALS: BP 149/95
[2019-06-11] MEDS ORDERED: IBUPROFEN 800 MG TABLET PO STA (12:29)
--- NOTE | 2019-06-11 12:30 | ED Physician Documentation ---
PD HPI LOWER EXT INJURY - Stated complaint Stated Complaint: RT ANKLE PX - Chief complaint Chief Complaint: Trauma Ext - History obtained from History obtained from: Patient (Last night she inverted her right ankle after missing a step and fell. She has significant pain of the right ankle, no other injuries. She is able to walk and bear weight.) Review of Systems Constitutional: reports: Reviewed and negative Cardiac: reports: Reviewed and negative Respiratory: reports: Reviewed and negative PD PAST MEDICAL HISTORY - Past Medical History Cardiovascular: Hypertension, Coronary artery disease, Murmur Respiratory: COPD, Emphysema, Shortness of breath Neuro: Headaches, Peripheral neuropathy, Tremors Endocrine/Autoimmune: None GI: GERD : Incontinence (stress), Frequency HEENT: Chronic sinusitis Psych: Depression, Anxiety, Post traumatic stress disorder Musculoskeletal: Osteoarthritis, Chronic back pain Derm: None - Past Surgical History Past Surgical History: Yes General: Cholecystectomy, Other - Present Medications Home Medications: Ambulatory Orders Medication Instructions Recorded Confirmed Albuterol Sulfate [Proair Hfa 1 - 2 puffs INH Q4H PRN #1 inhaler 08/02/18 Inhaler] Fluticasone/Salmeterol [Advair 1 each IH BID #1 blst.w.dev 08/02/18 250-50 Diskus] Montelukast [Singulair] 10 mg PO QPM #30 tablet 08/02/18 Tiotropium [place] [Spiriva] 18 mcg IH DAILY #30 cap.w.dev 08/02/18 Alprazolam [Xanax] 0.25 mg PO Q4H #30 tablet 08/03/18 Aspirin [Adult Aspirin] 81 mg PO DAILY #30 tablet.dr 08/03/18 Benzonatate [Tessalon] 100 mg PO TID PRN #30 capsule 08/03/18 Chlorhexidine Gluconate [Peridex] 15 ml MM BID #60 mouthwash 08/03/18 Fluticasone [Flonase] 1 sprays CASANDRA DAILY #1 bottle 08/03/18 Nicotine 14 mg Patch [Nicoderm] 1 each TOP Q24H #7 patch 08/03/18 Nicotine 7 mg Patch [Nicoderm] 1 each TOP Q24H #7 patch 08/03/18 Prednisone 10 mg PO DAILY #13 tab.ds.pk 08/03/18 Saccharomyces Boulardii [Florastor] 250 mg PO BID #60 capsule 08/03/18 levoFLOXacin [Levaquin] 500 mg PO DAILY #5 tablet 08/03/18 Hydrocodone/Acetaminophen 1 - 2 each PO Q6H PRN #14 tablet 06/11/19 [Hydrocodon-Acetaminophen 5-325] - Allergies Allergies/Adverse Reactions: Allergies Allergy/AdvReac Type Severity Reaction Status Date / Time penicillin V Allergy Severe Hives Verified 06/11/19 12:10 pollen extracts Allergy Intermediate Stuffy/Runny Verified 06/11/19 12:10 nose codeine AdvReac Severe Hives Verified 06/11/19 12:10 - Social History Does the pt smoke?: Yes Smoking Status: Former smoker Does the pt drink ETOH?: Yes Does the pt have substance abuse?: Yes - POLST Patient has POLST: No POLST Status: Full Code PD ED PE NORMAL - Vitals Vital signs reviewed: Yes - General General: Alert and oriented X 3, No acute distress - HEENT HEENT: PERRL, EOMI - Extremities Extremities: Other (Tender and swollen over the lateral malleolus of the right ankle, no proximal fibular tenderness. Mild tenderness of the talar dome. No foot tenderness. Neurovascular intact in the right foot.) - Psych Psych: Normal mood, Normal affect Results - Vitals Vitals: Vital Signs - 24 hr 06/11/19 12:07 Temperature 37.1 C Heart Rate 62 Respiratory 16 Rate Blood Pressure 149/95 H O2 Saturation 98 Oxygen O2 Source Room air - Rads (name of study) 3v R ankle Radiology: EMP read contemporaneously (No acute fracture or malalignment, incomplete union of previous fracture at the base of the fifth metatarsal. Soft tissue swelling.) Departure - Departure Disposition: 01 Home, Self Care Clinical Impression: Ankle sprain Qualifiers: Encounter type: initial encounter Involved ligament of ankle: anterior talofibular ligament Laterality: right Qualified Code(s): S93.491A - Sprain of other ligament of right ankle, initial encounter Condition: Good Record reviewed to determine appropriate education?: Yes Instructions: ED Sprain Ankle W X Ray Follow-Up: [facility] [Provider Group] - Within 1 week Prescriptions: Hydrocodone/Acetaminophen [Hydrocodon-Acetaminophen 5-325] 1 - 2 each PO Q6H PRN #14 tablet PRN Reason: pain Comments: Given your circumstances, [employer] might be able to help out by installing a railing, their phone number is [phone]. Return for new or worsening symptoms. Wear the boot you already have, follow-up with the orthopedic surgeon, call Friday for an appointment. Elevate as needed. Do not drink or drive while taking narcotic pain medication. Note that many narcotic pain relievers also contain Tylenol/acetaminophen. Please ensure that your total dose of acetaminophen from all sources does not exceed 3 g (3000 mg) per day. You may get constipated while on this medication. Take a stool softener such as Colace twice a day while you are on it. Also add an [id number]-cxcdxbu laxative such as senna or MiraLAX on any day that you do not have a bowel movement. If you received a narcotic pain medication or sedative while in the emergency department, do not drive for the next 24 hours.
--- NOTE | 2019-06-11 13:25 | XRAY Report ---
Reason: ankle pain Procedure Date: 06/11/2019 Accession Number: [id number] / [id number] Procedure: XR - Ankle 3 View RT CPT Code: Final Report FULL RESULT: EXAM: RIGHT ANKLE RADIOGRAPHY EXAM DATE: 06/11/2019 12:49 PM. CLINICAL HISTORY: Ankle pain. COMPARISON: Right ankle radiographs from 12/27/2018, right foot radiograph from 02/01/2019. TECHNIQUE: 3 views. FINDINGS: Bones: No acute fracture is demonstrated. There is partial visualization of fracture at the base of the fifth metatarsal. There appears to be incomplete osseous union. There is a corticated osseous structure adjacent to the fibula, also present previously. This may represent sequela of old injury. Joints: No dislocation or subluxation demonstrated. Alignment of the ankle mortise and talar dome is fairly symmetric. Soft Tissues: There may be mild soft tissue swelling over the lateral malleolus. IMPRESSION: 1. No acute fracture or malalignment. 2. Incomplete union of partially visualized fracture at the base of the fifth metatarsal. 3. Mild soft tissue swelling over the lateral malleolus. RADIA
== END 2019-06-11 13:45 | disposition home or self-care (01) ==
LOC: ED 12:03
DX: S93.491A Sprain of other ligament of right ankle, initial encounter (principal); X50.1XXA Overexertion from prolonged static or awkward postures, initial encounter; Y93.01 Activity, walking, marching and hiking; G62.9 Polyneuropathy, unspecified; I10 Essential (primary) hypertension; J43.9 Emphysema, unspecified; Z87.891 Personal history of nicotine dependence; Z79.82 Long term (current) use of aspirin
CPT/HCPCS: 73610; 99283; A9270

== ENCOUNTER 2019-07-05 13:10 | Outpatient (CLI) | payer MEDICAID | END 2019-07-05 13:11 | disposition home or self-care (01) | LOC: RT 13:10 | PROVIDERS: ATTEND Physician Assistant Medical | DX: J44.9 Chronic obstructive pulmonary disease, unspecified (principal) | CPT/HCPCS: 94010 ==

== ENCOUNTER 2022-09-05 09:21 | Emergency (ER) | payer MEDICARE, MEDICAID ==
--- NOTE | 2022-09-05 09:58 | ED Physician Documentation ---
PD HPI URI - Stated complaint Stated Complaint: COUCH/WEAKNESS - Chief complaint Chief Complaint: General - History obtained from History obtained from: Patient - History of Present Illness Timing - onset: How many weeks ago (2) Timing duration: Weeks (2) Timing details: Gradual onset, Still present Associated symptoms: Nasal congestion, Productive cough, Dyspnea. No: Fever, Bilateral edema, Unilateral edema Contributing factors: COPD / asthma (She denies history of asthma. She states she is a former smoker. She does have a general wheezing however. Prior scripts in database for Advair and MDI.). No: Sick contact Review of Systems Constitutional: denies: Fever Nose: reports: Congestion Throat: denies: Sore throat Cardiac: denies: Chest pain / pressure Respiratory: reports: Dyspnea, Cough, Wheezing. denies: Hemoptysis GI: denies: Abdominal Pain, Nausea, Vomiting, Diarrhea Musculoskeletal: denies: Extremity swelling PD PAST MEDICAL HISTORY - Past Medical History Cardiovascular: Hypertension, Coronary artery disease, Murmur Respiratory: COPD, Shortness of breath Neuro: Headaches, Peripheral neuropathy, Tremors Endocrine/Autoimmune: None GI: GERD : Incontinence (stress), Frequency HEENT: Chronic sinusitis Psych: Depression, Anxiety, Post traumatic stress disorder Musculoskeletal: Osteoarthritis, Chronic back pain Derm: None - Past Surgical History Past Surgical History: Yes General: Cholecystectomy, Other - Present Medications Home Medications: Ambulatory Orders Medication Instructions Recorded Confirmed Albuterol Sulfate [Proair Hfa 1 - 2 puffs INH Q4H PRN #1 inhaler 08/02/18 Inhaler] Fluticasone/Salmeterol [Advair 1 each IH BID #1 blst.w.dev 08/02/18 250-50 Diskus] Montelukast [Singulair] 10 mg PO QPM #30 tablet 08/02/18 Tiotropium [place] [Spiriva] 18 mcg IH DAILY #30 cap.w.dev 08/02/18 Alprazolam [Xanax] 0.25 mg PO Q4H #30 tablet 08/03/18 Aspirin [Adult Aspirin] 81 mg PO DAILY #30 tablet. 08/03/18 Benzonatate [Tessalon] 100 mg PO TID PRN #30 capsule 08/03/18 Chlorhexidine Gluconate [Peridex] 15 ml MM BID #60 mouthwash 08/03/18 Fluticasone [Flonase] 1 sprays CASANDRA DAILY #1 bottle 08/03/18 Nicotine 14 mg Patch [Nicoderm] 1 each TOP Q24H #7 patch 08/03/18 Nicotine 7 mg Patch [Nicoderm] 1 each TOP Q24H #7 patch 08/03/18 Saccharomyces Boulardii [Florastor] 250 mg PO BID #60 capsule 08/03/18 levoFLOXacin [Levaquin] 500 mg PO DAILY #5 tablet 08/03/18 predniSONE [Prednisone] 10 mg PO DAILY #13 tab.ds.pk 08/03/18 Hydrocodone/Acetaminophen 1 - 2 each PO Q6H PRN #14 tablet 06/11/19 [Hydrocodon-Acetaminophen 5-325] Albuterol Sulf [Ventolin Hfa 1 - 2 puffs INH Q4HR PRN #1 each 09/05/22 Inhaler] Benzonatate [Tessalon] 100 mg PO TID PRN #20 cap 09/05/22 Potassium Chloride 10 meq PO DAILY #10 tab 09/05/22 cephALEXin [Keflex] 500 mg PO TID #15 cap 09/05/22 dexAMETHasone [Decadron] 4 mg PO DAILY #5 tablet 09/05/22 - Allergies Allergies/Adverse Reactions: Allergies Allergy/AdvReac Type Severity Reaction Status Date / Time penicillin V Allergy Severe Hives Verified 06/11/19 12:10 pollen extracts Allergy Intermediate Stuffy/Runny Verified 06/11/19 12:10 nose codeine AdvReac Severe Hives Verified 06/11/19 12:10 - Living Situation Living Situation: reports: Alone Living Arrangement: reports: At home - Social History Does the pt smoke?: Yes Smoking Status: Former smoker Does the pt drink ETOH?: Yes Does the pt have substance abuse?: Yes - POLST Patient has POLST: No POLST Status: Full Code PD ED PE NORMAL - Vitals Vital signs reviewed: Yes - General General: Alert and oriented X 3, Well developed/nourished - HEENT HEENT: Moist mucous membranes, Pharynx benign - Neck Neck: Supple, no meningeal sign, No adenopathy, No JVD - Cardiac Cardiac: RRR, No murmur - Respiratory Respiratory: No respiratory distress. No: Clear bilaterally (congested sounds bilaterally upper, with exp wheezing both sides. No leg edema nor calf t enderness. ) - Abdomen Abdomen: Soft, Non tender - Derm Derm: Normal color, Warm and dry - Extremities Extremities: No edema, No calf tenderness / cord Results - Vitals Vitals: Vital Signs - 24 hr 09/05/22 09/05/22 09/05/22 09:34 09:40 10:44 Temperature 37.3 C Heart Rate 72 73 80 Respiratory 18 18 20 Rate Blood Pressure 140/82 H O2 Saturation 97 94 09/05/22 09/05/22 11:42 12:00 Temperature Heart Rate 66 66 Respiratory 18 18 Rate Blood Pressure 138/70 H 153/66 H O2 Saturation 98 98 Oxygen O2 Source Room air - Labs Labs: Laboratory Tests 09/05/22 09/05/22 11:03 11:03 WBC 5.1 RBC 4.40 Hgb 13.3 Hct 40.9 MCV 93.0 MCH 30.2 MCHC 32.5 RDW 12.8 Plt Count 294 MPV 9.7 Neut # (Auto) 3.1 Lymph # (Auto) 1.3 L [place] # (Auto) 0.5 Eos # (Auto) 0.1 Baso # (Auto) 0.0 Absolute Nucleated RBC 0.00 Nucleated RBC % 0.0 Sodium 145 Potassium 3.1 L Chloride 100 L Carbon Dioxide 32 Anion Gap 13.0 BUN 12 Creatinine 0.7 Estimated GFR (MDRD) 83 L Glucose 108 H Calcium 9.2 Magnesium 1.8 Total Bilirubin 1.0 AST 19 ALT 15 Alkaline Phosphatase 51 Total Protein 7.2 Albumin 3.7 Globulin 3.5 Albumin/Globulin Ratio 1.1 Lipase 31 - Rads (name of study) chest xray Relevant Findings:: Prelim report reviewed, EMP independent interpretation of test (Nonspecific mild infiltrates right lower. Consider possible early pneumonia versus atelectasis.), See rad report PD Medical Decision Making - ED course Complexity details: considered differential (She has had a cough which is now productive and associated with wheezing and dyspnea. Former smoker she denies any COPD or asthma. However review of pharmacy prescriptions shows Advair and inhalers. We can get chest x-ray and some labs. She does feel that she is dehydrated but is not nauseous an), d/w patient Social Determinants of Health: The patient states she we will have to try to find transportation to the pharmacy. She lives in [place] here but apparently the local would be pharmacy in [place] does not take her insurance. Rather than electronically sending it, she asked to just print out the prescriptions as she is not sure which pharmacy she will be going to right now. Drug Therapy Requiring Monitoring for Toxicity: She was given albuterol inhaler by RT and had improvement in her breathing. ED course: She to me stated she did not have any history of COPD. However she does have prescriptions for Advair and inhalers. Apparently not taking them. She did feel that she was dehydrated and felt an IV was needed but she is not having vomiting and is actually drinking fluids from a water bottle and drank about a liter while she was here in the ER. Given her persistent cough with productive sputum over a couple of weeks associated with wheezing and apparent history of some reactive airway/COPD, I felt it appropriate to prescribe her an inhaler for her to use as she says she does not have 1 at home, and also a course of steroids and antibiotic for likely bronchitis. She was given some potassium orally for a mild hypokalemia of 3.1. Departure - Departure Disposition: 01 Home, Self Care Clinical Impression: Acute bronchitis, Hypokalemia, COPD with acute exacerbation Condition: Stable Record reviewed to determine appropriate education?: Yes Instructions: ED Upper Resp Infec Abx Tx, ED Diet High Potassium Prescriptions: Albuterol Sulf [Ventolin Hfa Inhaler] 1 - 2 puffs INH Q4HR PRN #1 each PRN Reason: Shortness Of Air/Wheezing dexAMETHasone [Decadron] 4 mg PO DAILY #5 tablet cephALEXin [Keflex] 500 mg PO TID #15 cap Potassium Chloride 10 meq PO DAILY #10 tab Benzonatate [Tessalon] 100 mg PO TID PRN #20 cap PRN Reason: Cough Comments: Your chest x-ray is clear without any signs of pneumonia. It does sound likely you have bronchitis. This can be mainly viral with some wheezing and tightness. There may be some bacterial component. We can treat it with an albuterol inhaler 2 puffs 4 times a day for the next 7 to 10 days and then as needed. Also cephalexin antibiotic 3 times daily for the next 5 days. I would also have you take Decadron steroid anti-inflammatory to help with bronchial inflammation and wheezing daily for 5 more days as well. Stable hydrated which she seemed to be doing with oral hydration. Your potassium is a bit low at 3.1 and this may be signaling your body to feel like you need hydration. I would have you add a potassium supplement in addition to the ongoing fluid intake. Add benzonatate if needed for cough. I printed out the prescriptions for you until you are able to decide which pharmacy to be using. Recheck if not improving well over the next several days. Discharge Date/Time: 09/05/22 12:02
[2022-09-05] MEDS: ALBUTEROL 1 PUFF INH STA (10:41)
[2022-09-05 11:11] LABS: BASOPHILS % (AUTO) 0.4 %; EOSINOPHILS # (AUTO) 0.1 10^3/uL (0.0-0.7); EOSINOPHILS % (AUTO) 1.6 %; HCT - HEMATOCRIT 40.9 % (37.0-47.0); HGB - HEMOGLOBIN 13.3 g/dL (12.0-16.0); LYMPHOCYTES # (AUTO) 1.3 10^3/uL (1.5-3.5); LYMPHOCYTES % (AUTO) 25.9 %; MEAN CORPUSCULAR HEMOGLOBIN 30.2 pg (27.0-31.0); MEAN CORPUSCULAR HGB CONC 32.5 g/dL (32.0-36.0); MEAN PLATELET VOLUME 9.7 fL (7.9-10.8); MONOCYTES # (AUTO) 0.5 10^3/uL (0.0-1.0); MONOCYTES % (AUTO) 10.1 %; NEUTROPHILS # (AUTO) 3.1 10^3/uL (1.5-6.6); NEUTROPHILS % (AUTO) 61.6 %; PLT - PLATELET COUNT 294 10^3/uL (130-450); RED CELL DISTRIBUTION WIDTH 12.8 % (12.0-15.0); WHITE BLOOD COUNT 5.1 x10^3/uL (4.8-10.8)
[2022-09-05] MEDS: cephALEXin 250 MG CAPSULE PO STA (11:14)
[2022-09-05] MEDS: BENZONATATE 100 MG CAPSULE PO STA (11:14)
[2022-09-05 11:22] LABS: ALBUMIN 3.7 g/dL (3.2-5.5); ALBUMIN/GLOBULIN RATIO 1.1 (1.0-2.2); CALCIUM 9.2 mg/dL (8.5-10.3); CREATININE 0.7 mg/dL (0.4-1.0); MAGNESIUM 1.8 mg/dL (1.7-2.8); POTASSIUM 3.1 mmol/L (3.5-5.0); TOTAL PROTEIN 7.2 g/dL (6.7-8.2)
--- NOTE | 2022-09-05 11:32 | XRAY Report ---
PROCEDURE: Chest 1 View X-Ray INDICATIONS: cough and wheezing TECHNIQUE: One view of the chest was acquired. COMPARISON: 07/31/2018 FINDINGS: Surgical changes and devices: None. Lungs and pleura: Patchy opacities present lateral right lung base. No pleural effusion or pneumotho rax. Mediastinum: Cardiac silhouette is at the upper limits of normal in size. Bones and chest wall: No suspicious bony lesions. Overlying soft tissues appear unremarkable. IMPRESSION: Nonspecific opacities present at the right lung base, could represent pneumonia and/or aspiration in the appropriate clinical setting. Reviewed by: Vargas Vanegas MD on 09/05/2022 11:31 AM PST Approved by: Vargas Vanegas MD on 09/05/2022 11:31 AM PST Station ID: [id number]
[2022-09-05] MEDS: POTASSIUM CHLORIDE 20 MEQ TABLET PO STA (11:59)
[2022-09-05 12:03] VITALS: BP 153/66
== END 2022-09-05 12:02 | disposition home or self-care (01) ==
LOC: ED 09:21
DX: J20.9 Acute bronchitis, unspecified (principal); J44.1 Chronic obstructive pulmonary disease with (acute) exacerbation; J44.0 Chronic obstructive pulmonary disease with (acute) lower respiratory infection; E87.6 Hypokalemia; Z87.891 Personal history of nicotine dependence; I10 Essential (primary) hypertension
CPT/HCPCS: 36415; 71045; 80053; 83690; 83735; 85025; 94640; 99284; A9270

== ENCOUNTER 2023-06-11 09:47 | Outpatient (CLI) | payer MEDICARE, MEDICAID ==
[2023-06-11 12:01] LABS: BASOPHILS % (AUTO) 0.8 %; EOSINOPHILS # (AUTO) 0.1 10^3/uL (0.0-0.7); EOSINOPHILS % (AUTO) 1.1 %; HCT - HEMATOCRIT 44.2 % (37.0-47.0); HGB - HEMOGLOBIN 13.8 g/dL (12.0-16.0); LYMPHOCYTES # (AUTO) 1.5 10^3/uL (1.5-3.5); LYMPHOCYTES % (AUTO) 29.5 %; MEAN CORPUSCULAR HEMOGLOBIN 30.4 pg (27.0-31.0); MEAN CORPUSCULAR HGB CONC 31.2 g/dL (32.0-36.0); MEAN CORPUSCULAR VOLUME 97.4 fL (81.0-99.0); MEAN PLATELET VOLUME 10.2 fL (7.9-10.8); MONOCYTES # (AUTO) 0.4 10^3/uL (0.0-1.0); NEUTROPHILS # (AUTO) 3.2 10^3/uL (1.5-6.6); NEUTROPHILS % (AUTO) 60.4 %; PLT - PLATELET COUNT 231 10^3/uL (130-450); RED BLOOD COUNT 4.54 10^6/uL (4.20-5.40); RED CELL DISTRIBUTION WIDTH 13.6 % (12.0-15.0); WHITE BLOOD COUNT 5.2 x10^3/uL (4.8-10.8)
[2023-06-11 12:33] LABS: ALBUMIN 4.4 g/dL (3.2-5.5); ALBUMIN/GLOBULIN RATIO 1.7 (1.0-2.2); ALKALINE PHOSPHATASE 64 IU/L (42-121); ALT ALANINE AMINOTRANSFERASE 11 IU/L (10-60); AST ASPARTATE AMINOTRANSFERASE 18 IU/L (10-42); BILIRUBIN,TOTAL 0.4 mg/dL (0.2-1.0); BUN - BLOOD UREA NITROGEN 16 mg/dL (6-20); CALCIUM 9.9 mg/dL (8.5-10.3); CARBON DIOXIDE - CO2 30 mmol/L (21-32); CHLORIDE 103 mmol/L (101-111); CHOL/HDL RATIO 5.8 (<4.4); CHOLESTEROL 291 mg/dL; CREATININE 0.7 mg/dL (0.6-1.3); GFR - MDRD 83 (>89); GLUCOSE 97 mg/dL (74-104); HDL CHOLESTEROL 50 mg/dL; LDL CHOLESTEROL,CALCULATED 217 mg/dL; LDL/HDL RATIO 4.3 (<4.4); POTASSIUM 4.2 mmol/L (3.5-4.5); SODIUM 138 mmol/L (135-145); THYROID STIMULATING HORMONE 3.88 uIU/mL (0.34-5.60); TRIGLYCERIDES 120 mg/dL (48-352); VLDL CHOLESTEROL 24 mg/dL
[2023-06-11 12:42] LABS: ESTIMATED AVERAGE GLUCOSE 111 mg/dL (70-100); HEMOGLOBIN A1c% 5.5 % (4.27-6.07)
== END 2023-06-11 09:48 | disposition home or self-care (01) ==
LOC: LAB.N 09:47
PROVIDERS: ATTEND Nurse Practitioner Family
DX: Z00.00 Encounter for general adult medical examination without abnormal findings (principal); I10 Essential (primary) hypertension; Z13.220 Encounter for screening for lipoid disorders; Z13.1 Encounter for screening for diabetes mellitus
CPT/HCPCS: 36415; 80053; 80061; 83036; 83721; 84443; 85025

== ENCOUNTER 2023-09-18 05:40 | Day surgery (SDC) | payer MEDICARE, MEDICAID ==
[2023-09-18] MEDS: LACTATED RINGERS 1,000 ML IV ONE ×2 (06:10→08:18)
[2023-09-18] MEDS ORDERED: PROPOFOL 500 MG/50 ML 500 MG/50 ML VIAL ONE (06:53)
--- NOTE | 2023-09-18 06:58 | ANESTHESIA ---
Pre-Anesthesia VS, & Labs - Diagnosis screening - Procedure colonoscopy Height: 5 ft 5 in Weight (kg): 71.9 kg Body Mass Index: 26.4 BMI Classification: Overweight - NPO Last Fluid Intake: am prep - Is Patient ?: No - Lab Results Lab results reviewed: Yes Home Medications and Allergies Allergies/Adverse Reactions: Allergies Allergy/AdvReac Type Severity Reaction Status Date / Time penicillin V Allergy Severe Hives Verified 06/11/19 12:10 pollen extracts Allergy Intermediate Stuffy/Runny Verified 06/11/19 12:10 nose codeine AdvReac Severe Hives Verified 06/11/19 12:10 Anes History & Medical History - Medical History Cardiovascular: reports: Hypertension, Coronary artery disease, Murmur Pulmonary: reports: COPD, Shortness of breath Gastrointestinal: reports: GERD Urinary: reports: Incontinence, Frequency Neuro: reports: Headaches, Peripheral neuropathy, Tremors Musculoskeletal: reports: Osteoarthritis, Chronic back pain Endocrine/Autoimmune: reports: None Blood Disorders: reports: None Skin: reports: None Smoking Status: Former smoker - Surgical History General: reports: Cholecystectomy, Other Exam General: Alert, Oriented x3, Cooperative Dental: WNL, Dentures full Upper (in), Dentures full Lower (out) Mouth Openin Fingerbreadth Mallampati classification: II Thyromental Distance: 4-6 cm Respiratory: Lungs clear, Normal breath sounds, No respiratory distress Cardiovascular: Regular rate Neurological: Normal speech Mental/Cognitive Status: Alert/Oriented X3, Normal for patient Cognitive Status: Within normal limits Plan Anesthesia Type: Total IV Consent for Procedure(s) Verified and Reviewed: Yes Code Status: Attempt Resuscitation ASA classification: 2-Mild systemic disease Is this case an emergency?: No
--- NOTE | 2023-09-18 07:29 | HISTORY & PHYSICAL EXAMINATION ---
Chief Complaint - Chief Complaint Chief Complaint: here for colonoscopy History of Present Illness - History Obtained From Records Reviewed: yes History obtained from: pt Exam Limitations: none - History of Present Illness HPI Comment/Other: positive cologuard. no gi symptoms. no fhx colon ca History - Past Medical History Cardiovascular: reports: Hypertension, Coronary artery disease, Murmur Respiratory: reports: COPD, Shortness of breath Neuro: reports: Headaches, Peripheral neuropathy, Tremors Endocrine/Autoimmune: reports: None GI: reports: GERD : reports: Incontinence, Frequency HEENT: reports: Chronic sinusitis Psych: reports: Depression, Anxiety, Post traumatic stress disorder Musculoskeletal: reports: Osteoarthritis, Chronic back pain Derm: reports: None MRSA Hx?: No - Past Surgical History General: reports: Cholecystectomy, Other - Family & Social History Family History: Mother: , Father: , Sister: Alive and Well Family History Comment/Other: The patient's mother in 2001 of natural caused and had no known medical history. Her father became parapelegic when the patient was only 4 years old and was a QUAD, 8 years later from complications related to his condition. She has 2 biological sisters that are quite a bit older, both astranged without any known medical conditions. 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 She moved to the [place] in 2001 to take care of her mother and to live with her boyfriend, both of which have . She was homeless starting in 2014 after loosing her job. In the past 6 months, she has been able to move to transitional housing with her therapy dog, Med. She has made some friends there. She denies alcohol use. She admits to occasional marijuana use. She states that she has smoked since age 15 and for some of those years was using up to 3 PPD, but for the past month has been able to cut down to 1/2 PPD. She quit smoking one week ago and denies illicit drug use. She wishes to be a FULL code. - Substance History Use: Uses substance without health or social issues: Tobacco, Cannabis - POLST Patient has POLST: No POLST Status: Full Code Meds/Allgy - Home Medications Home Medications: Ambulatory Orders Medication Instructions Recorded Confirmed Albuterol Sulfate [Proair Hfa 1 - 2 puffs INH Q4H PRN #1 inhaler 08/02/18 Inhaler] Fluticasone/Salmeterol [Advair 1 each IH BID #1 blst.w.dev 08/02/18 250-50 Diskus] Montelukast [Singulair] 10 mg PO QPM #30 tablet 08/02/18 Tiotropium [place] [Spiriva] 18 mcg IH DAILY #30 cap.w.dev 08/02/18 Alprazolam [Xanax] 0.25 mg PO Q4H #30 tablet 08/03/18 Aspirin [Adult Aspirin] 81 mg PO DAILY #30 tablet.dr 08/03/18 Benzonatate [Tessalon] 100 mg PO TID PRN #30 capsule 08/03/18 Chlorhexidine Gluconate [Peridex] 15 ml MM BID #60 mouthwash 08/03/18 Fluticasone [Flonase] 1 sprays CASANDRA DAILY #1 bottle 08/03/18 Nicotine 14 mg Patch [Nicoderm] 1 each TOP Q24H #7 patch 08/03/18 Nicotine 7 mg Patch [Nicoderm] 1 each TOP Q24H #7 patch 08/03/18 Saccharomyces Boulardii [Florastor] 250 mg PO BID #60 capsule 08/03/18 levoFLOXacin [Levaquin] 500 mg PO DAILY #5 tablet 08/03/18 predniSONE [Prednisone] 10 mg PO DAILY #13 tab.ds.pk 08/03/18 Hydrocodone/Acetaminophen 1 - 2 each PO Q6H PRN #14 tablet 06/11/19 [Hydrocodon-Acetaminophen 5-325] Albuterol Sulf [Ventolin Hfa 1 - 2 puffs INH Q4HR PRN #1 each 09/05/22 Inhaler] Benzonatate [Tessalon] 100 mg PO TID PRN #20 cap 09/05/22 Potassium Chloride 10 meq PO DAILY #10 tab 09/05/22 cephALEXin [Keflex] 500 mg PO TID #15 cap 09/05/22 dexAMETHasone [Decadron] 4 mg PO DAILY #5 tablet 09/05/22 - Allergies Allergies/Adverse Reactions: Allergies Allergy/AdvReac Type Severity Reaction Status Date / Time penicillin V Allergy Severe Hives Verified 06/11/19 12:10 pollen extracts Allergy Intermediate Stuffy/Runny Verified 06/11/19 12:10 nose codeine AdvReac Severe Hives Verified 06/11/19 12:10 Review of Systems - Other Findings Other Findings: 10 pt ros as above otherwise unremarkable Exam - Physical Exam General Appearance: positive: No acute distress, Alert Eyes Bilateral: positive: PERRL, EOMI ENT: positive: No signs of dehydration Neck: positive: No JVD, Trachea midline Respiratory: positive: No respiratory distress Cardiovascular: positive: Regular rate & rhythm Abdomen: positive: No distention Neurologic/Psychiatric: positive: Oriented x3 Conclusion/Plan - Problem List (1) Colon cancer screening Conclusion/Plan: positive cologuard plan colonoscopy. parq held and consent obtained - Lab Results Lab results reviewed: Yes
[2023-09-18] MEDS ORDERED: LIDOCAINE-MPF 2% 5 ML VIAL ONE (07:35)
[2023-09-18] MEDS ORDERED: GLYCOPYRROLATE 1 MG/5 ML VIAL ONE (07:41)
--- NOTE | 2023-09-18 08:31 | ANESTHESIA POST OP EVALUATION ---
Anesthesia Post Eval - Post Anesthesia Eval Vitals: Last Vital Signs Temp 36.5 C 09/18/23 08:18 Pulse 95 09/18/23 08:25 Resp 17 09/18/23 08:25 BP 151/68 H 09/18/23 08:25 Pulse Ox 95 09/18/23 08:25 O2 Flow Rate CV Function Including HR & BP: Stable Pain Control: Satisfactory Nausea & Vomiting: Negative Mental Status: Baseline Respiratory Status: Airway Patent Hydration Status: Satisfactory Anesthesia Complications: None
[2023-09-18 10:54] VITALS: BP 104/54; O2SAT 92
== END 2023-09-18 05:41 | disposition home or self-care (01) ==
LOC: SDS 05:40
PROVIDERS: ATTEND Surgery
PROC: 0DBN8ZX Excision of Sigmoid Colon, Via Natural or Artificial Opening Endoscopic, Diagnostic (ICD-10-PCS; principal; 2023-09-18 07:30)
DX: K63.5 Polyp of colon (principal); K57.30 Diverticulosis of large intestine without perforation or abscess without bleeding; R19.5 Other fecal abnormalities; I10 Essential (primary) hypertension; J44.9 Chronic obstructive pulmonary disease, unspecified; Z87.891 Personal history of nicotine dependence
CPT/HCPCS: 45380; 45385; J7120